=== PATIENT | female | born 1940 | race Hispanic/Latino ===

== ENCOUNTER 2017-01-09 05:57 | Day surgery (SDC) | payer MEDICARE, BC ==
[2017-01-08 07:38] VITALS: BMI 26.0
[2017-01-09] MEDS ORDERED: Lactated Ringer's 1,000 ML IV ONE (06:45)
[2017-01-09] MEDS ORDERED: Bacitracin Ointment 30 GM TUBE ONE (07:20)
[2017-01-09] MEDS ORDERED: Bupivacaine 0.5% Inj(30mL) ONE (07:20)
[2017-01-09] MEDS ORDERED: Dexamethasone 4 mg/1 ml ONE (07:20)
[2017-01-09] MEDS ORDERED: Lidocaine 1% Inj (20ml) ONE (07:20)
[2017-01-09] MEDS ORDERED: Propofol 10 mg/ml Inj (20 ML) ONE (07:31)
[2017-01-09] MEDS ORDERED: Lidocaine 1% Inj (20ml) IJ ONE (08:24)
[2017-01-09] MEDS ORDERED: Bupivacaine 0.5% 50 ML IJ ONE (08:35)
[2017-01-09] MEDS ORDERED: HYDROmorphone 0.5 mg/0.5 ml ISec IVP PRN (08:55)
--- NOTE | 2017-01-09 10:38 | PCM.SURG1 ---
Surgeon's Initial Post Op Note - Surgeon's Notes Surgeon: Abdullahi Refuge Manager: LAZARA Marcano Type of Anesthesia: IV Sedation, Local Anesthesia Administered By: DR Samayoa/ Pre-Operative Diagnosis: Painful Hardware R foot Operative Findings: painful hardware (deep) R foot. Bursa R foot Post-Operative Diagnosis: as above Operation Performed: Hardware removal ( deep) R foot. bursal excision R foot ( dorsal aspect). excision skin/subcutaneous tissue. positioning of fluor/ interpretation of video images Specimen/Specimens Removed: screw removal (deep). excisionbursa dorsal aspect R foot. excision skin/subcutaneous tissue Estimated Blood Loss: EBL {In ML}: 5 Blood Products Given: N/A Drains Used: No Drains Post-Op Condition: Good Date of Surgery/Procedure: 01/09/17 Time of Surgery/Procedure: 08:25 (time in room/anaesthesia induction time 07:40)
[2017-01-09 12:44] VITALS: BP 133/84; PULSE 59; RESP 18; TEMP 97.9; O2SAT 97
--- NOTE | 2017-01-09 14:01 | RAD ---
PROCEDURE: Intraoperative Fluoroscopy. HISTORY: RIGHT FOOT HARDWARE REMOVAL FINDINGS: Fluoroscopic assistance was provided. Approximately 7.7 seconds fluoroscopy time utilized during this procedure.
--- NOTE | 2017-01-09 16:26 | RAD ---
PROCEDURE: Right Foot Radiographs. HISTORY: S/P rEMOVAL OF HARDWAre COMPARISON: None. FINDINGS: BONES: Normal. No fracture. Status post bunionectomy. JOINTS: Normal. SOFT TISSUES: Normal. OTHER FINDINGS: None. IMPRESSION: No acute fracture. Status post bunionectomy.
--- NOTE | 2017-01-10 06:03 | OP ---
PROCEDURE DATE: 01/09/2017 PREOPERATIVE DIAGNOSES: Painful hardware of the right foot, status post first metatarsal osteotomy. POSTOPERATIVE DIAGNOSES: 1. Painful hardware, right foot, status post first metatarsal osteotomy. 2. Bursal formation superficial to the hardware. 3. Acceptable correction of the hallux valgus deformity. OPERATIVE PROCEDURES: 1. Hardware removal, deep. 2. Excision of bursa on the dorsal aspect of the foot. 3. Positioning of fluoroscope, interpretation of video images. 4. Excision of skin and subcutaneous tissue. SURGEON: Vishnu Fernando MD ALLERGY SPECIALIST: Kerry Klein. ANESTHESIA: Local anesthetic with IV sedation, Dr. Samayoa. COMPLICATIONS: None. DRAINS: None. OPERATIVE INDICATION: The patient is a patient well known to my practice who is a 76-year-old woman, physiologically younger, presents after successful first metatarsal osteotomy. The patient presents now for hardware removal. Pros, cons, risks and benefits of surgical approach are discussed. The p ossibility of mechanical failure, infection, thromboembolic disease, secondary or tertiary surgery is discussed. The patient is very pleased with the outcome of her metatarsal osteotomy. She is just d isturbed by the prominent pin and screw. OPERATIVE PROCEDURE: After having obtained informed consent, after the satisfactory induction of the anesthetic by Dr. Samayoa after having identified side, site and procedure and a critical pause/time o ut, the patient identified as Flora Almonte in the supine position with all bony prominences well pa dded, the right lower extremity is prepped and free draped in the usual fashion for lower extremity s urgery. Under the surgeon's direction, the fluoroscope is positioned. Video images are generated an d therapeutic decisions are made there from. The position of the hardware is identified and marked. The incision, approximately 1 inch incision is described, extending from the margin of the buried burleson rdware to the pin. The skin is insufflated with Marcaine for local anesthetic with Dr. Samayoa providi ng intravenous sedation. The skin incision is carried down through the skin and subcutaneous tissue. The bursa is identified. Great care is taken to excise the bursal tissue. The inner fragmentary p in is identified and is removed. At this point in time, the screw head is identified and is removed as well. The wound is thoroughly irrigated. The tourniquet is deflated. Hemostasis controlled and closure is in layers with interrupted Vicryl and nylon. Intraarticular injection is offered. Compre ssion dressing is applied. Vishnu Fernando MD cc: [id number] TT: 01/10/2017 06:03:35 tn
== END 2017-01-09 13:55 | disposition home or self-care (01) ==
LOC: H.OPSURG 05:57
PROVIDERS: ATTEND Orthopaedic Surgery
DX: T84.84XA Pain due to internal orthopedic prosthetic devices, implants and grafts, initial encounter (principal); E03.9 Hypothyroidism, unspecified; K21.9 Gastro-esophageal reflux disease without esophagitis; M20.11 Hallux valgus (acquired), right foot
CPT/HCPCS: 20680; 28002; 73620; 88300; 88304; 97116; 97161; G8978; G8979; G8980; J0690; J2704; J3010; J7030; J7120

== ENCOUNTER 2017-11-20 06:06 | Inpatient (IN) | payer MEDICARE, OTHER ==
[2017-11-06 08:59] VITALS: BMI 24.1
--- NOTE | 2017-11-20 07:29 | CP.PCM.HP ---
History of Present Illness - History of Present Illness History of Present Illness: PMD: Doni Gotti MD Orthopedist: Dr Fernando Chief Complaint: Right hip pain The Patient was seen and examined in room 721 HPI: this is a 77 years old female with remote hx of HTN, not on medication, Hypothyroidism, multiple surgeries and osteoarthritis of the right hip for which She has been treated with analgesic tablets, Physical therapy with no significant relief. Because of the right hip failing conservative treatment she and her Orthopedist have decided on Surgical intervention . She is here for an elective right total hip replacement. No Fever, SOB, Chest pain diarrhea nor dysuria. PMH: Remote HTN; Hypothyroidism; cataract; GERD; Arthritis; Back pain PSH: Carpel Tunnel syndrome left wrist; Thyroid surgery; partial hysterectomy; Bunion Surgery bilateral 1st metatarsal Osteotomy SH: No illegal drug use; no Alcohol; never Smoked; live with family; Retired Seamstress FH: States: no known family hx Allergies; NKDA Medication: Reviewed Present on Admission - Present on Admission Any Indicators Present on Admission: No History of DVT/PE: No History of Uncontrolled Diabetes: No Urinary Catheter: No Decubitus Ulcer Present: No Review of Systems - Constitutional Constitutional: absent: Anorexia, Chills, Fever, Headache, Lethargy - EENT Eyes: Requires Corrective Lenses. absent: Diplopia, Floaters, Sees Flashes Ears: absent: Decreased Hearing, Ear Discharge, Tinnitus Nose/Mouth/Throat: absent: Epistaxis, Nasal Congestion, Sinus Pain, Sinus Pressure - Cardiovascular Cardiovascular: absent: Chest Pain, Dyspnea, Edema - Respiratory Respiratory: absent: Cough, Dyspnea, Wheezing - Gastrointestinal Gastrointestinal: absent: Constipation, Diarrhea, Nausea, Vomiting - Genitourinary Genitourinary: absent: Dysuria, Flank Pain, Hematuria, Urinary Frequency - Musculoskeletal Musculoskeletal: Arthralgias, Back Pain. absent: Joint Swelling - Integumentary Integumentary: absent: Pruritus, Rash, Skin Ulcer, Sores, Striae, Swelling - Neurological Neurological: absent: Confusion, Dizziness, Focal Weakness, Headaches, Weakness - Psychiatric Psychiatric: absent: Anxiety, Depression, Panic Attacks - Endocrine Endocrine: absent: Palpitations, Polydipsia, Polyphagia, Polyuria - Hematologic/Lymphatic Hematologic: absent: Easy Bleeding, Easy Bruising Past Patient History - Past Medical History & Family History Past Medical History?: Yes - Past Social History Smoking Status: Never Smoked Chewing Tobacco Use: No Cigar Use: No Alcohol: None Drugs: Denies Home Situation {Lives}: With Family - CARDIAC Hx Cardiac Disorders: No - PULMONARY Hx Respiratory Disorders: No - NEUROLOGICAL Hx Neurological Disorder: No - HEENT Hx HEENT Problems: Yes Hx Cataracts: Yes - RENAL Hx Chronic Kidney Disease: No - ENDOCRINE/METABOLIC Hx Endocrine Disorders: No Hx Hypothyroidism: Yes - HEMATOLOGICAL/ONCOLOGICAL Hx Blood Disorders: No - INTEGUMENTARY Hx Dermatological Problems: No - MUSCULOSKELETAL/RHEUMATOLOGICAL Hx Musculoskeletal Disorders: Yes Hx Arthritis: Yes (right hip) Hx Back Pain: Yes Hx Spinal Stenosis: Yes - GASTROINTESTINAL Hx Gastrointestinal Disorders: Yes Hx Gastroesophageal Reflux: Yes Other/Comment: REMOVAL OF CYST IN STOMACH - GENITOURINARY/GYNECOLOGICAL Hx Genitourinary Disorders: No - PSYCHIATRIC Hx Emotional Abuse: No Hx Physical Abuse: No - SURGICAL HISTORY Hx Surgeries: Yes Hx Hysterectomy: Yes (PARTIAL) Hx Musculoskeletal Surgery: Yes (BILATERAL FOOT 2016) Hx Orthopedic Surgery: Yes (left wrtst carpal tunnel) Hx Thyroidectomy: Yes (REJI THYROIDECTOMY 20 YRS) Other/Comment: wendy bunionectomy,cyst on stomach - ANESTHESIA Hx Anesthesia: Yes Hx Anesthesia Reactions: No Hx Malignant Hyperthermia: No Has any member of the family had a problem w/ anesthesia?: No Meds Allergies/Adverse Reactions: Allergies Allergy/AdvReac Type Severity Reaction Status Date / Time No Known Allergies Allergy Verified 11/20/17 07:27 Physical Exam - Constitutional Appears: No Acute Distress - Head Exam Head Exam: ATRAUMATIC, NORMAL INSPECTION, NORMOCEPHALIC - Eye Exam Eye Exam: EOMI, Normal appearance Pupil Exam: NORMAL ACCOMODATION, PERRL - ENT Exam ENT Exam: Mucous Membranes Moist, Normal Exam, Normal External Ear Exam - Neck Exam Neck exam: Positive for: Full Rom, Normal Inspection. Negative for: Lymphadenopathy, Tenderness - Respiratory Exam Respiratory Exam: Clear to Auscultation Bilateral. absent: Rales, Rhonchi, Wheezes - Cardiovascular Exam Cardiovascular Exam: REGULAR RHYTHM, RRR, +S1, +S2 - GI/Abdominal Exam GI & Abdominal Exam: Normal Bowel Sounds, Soft. absent: Mass, Organomegaly, Tenderness - Rectal Exam Rectal Exam: Deferred - Extremities Exam Extremities exam: Positive for: joint swelling, normal inspection, tenderness - Neurological Exam Neurological exam: Alert, CN II-XII Intact, Oriented x3, Reflexes Normal - Psychiatric Exam Psychiatric exam: Normal Affect, Normal Mood - Skin Skin Exam: Dry, Intact, Normal Color, Warm Results - Vital Signs Recent Vital Signs: Last Vital Signs Temp 98 F 11/20/17 07:15 Pulse 68 11/20/17 07:21 Resp 18 11/20/17 07:15 BP 176/79 H 11/20/17 07:15 Pulse Ox 100 11/20/17 07:15 - Labs Result Diagrams: 11/20/17 07:15 Assessment & Plan - Assessment and Plan (Free Text) Assessment: #. Osteoathritis Right Hip #. Hypothyroidism #. Elevated Blood Pressure #. GERD #. Back pain Plan: 77 years old female with remote hx of Hypothyroidism, multiple surgeries and osteoarthritis of the right hip. She failed conservative treatment of the Osteoarthritis of the right hip and so is here for an elective right total hip replacement. #. Osteoathritis Right Hip for an elective Right Total hip replacement - consult Dr Fernando Orthopedic - Orthopedic management - NPO - pain management - PT/OT #. Hypothyroidism - Follow TSH - Restart levothyroxin after surgery #. Elevated Blood Pressure - Follow Blood Pressures #. GERD - Pantoprazole #. Back pain - pain management #. DVT prophylaxis post surgery #. Code Status: Full - Date & Time Date: 11/20/17
[2017-11-20 07:55] LABS: BLOOD UREA NITROGEN 20 mg/dl (7-17); CALCIUM 9.3 mg/dL (8.4-10.2); GFR AFRICAN-AMERICAN > 60; GFR NON-AFRICAN AMERICAN > 60
[2017-11-20] MEDS ORDERED: Lidocaine Hydrochloride 1% 0 ML ONE (08:05)
[2017-11-20] MEDS ORDERED: Bupivacaine 0.5% Inj(30mL) ONE (08:05)
[2017-11-20] MEDS ORDERED: Bacitracin Ointment 30 GM TUBE ONE (08:05)
[2017-11-20] MEDS ORDERED: Absorbable Gelatin Sponge Size 100 ONE (08:06)
[2017-11-20] MEDS ORDERED: Thrombin Topical 5,000 Int Units Spray Kit ONE (08:06)
[2017-11-20] MEDS ORDERED: Morphine 1 mg/ml preservative-free Inj(Duramorph) ONE (08:12)
[2017-11-20] MEDS ORDERED: Midazolam 2 MG/2 ML VIAL ONE (08:12)
[2017-11-20] MEDS ORDERED: Lidocaine 2% Jelly (5 ml) TOP ONE (08:19)
[2017-11-20] MEDS ORDERED: Lidocaine 2% MPF (5 ml) Inj ONE (08:20)
[2017-11-20] MEDS ORDERED: Succinylcholine 200 mg/10 ml Inj IV ONE (08:21)
[2017-11-20] MEDS ORDERED: Propofol 10 mg/ml Inj (20 ML) ONE (08:21)
[2017-11-20] MEDS ORDERED: Lactated Ringer's 1,000 ML IV ONE ×4 (08:45→14:52)
[2017-11-20] MEDS ORDERED: ePHEDrine 50 mg/ml Inj ONE (08:47)
[2017-11-20] MEDS ORDERED: Phenylephrine 10 mg/ml Inj ONE (08:48)
[2017-11-20] MEDS ORDERED: Rocuronium 10 mg/ml (5 ml) ONE ×2 (09:18→10:54)
[2017-11-20] MEDS ORDERED: Tranexamic Acid 100 mg/ml IV ONE (09:25)
--- NOTE | 2017-11-20 09:35 | CP.PCM.CON ---
History of Present Illness - History of Present Illness History of Present Illness: 77F failed conservative mgmt elected for right VIDAL no history bleeding/clotting disorder, CAD/stents/seizure disorder Review of Systems - Review of Systems All systems: reviewed and no additional remarkable complaints except - Musculoskeletal Musculoskeletal: As Per HPI Past Patient History - Past Medical History & Family History Past Medical History?: Yes Past Family History: Reviewed and not pertinent - Past Social History Smoking Status: Never Smoked Chewing Tobacco Use: No Cigar Use: No Alcohol: None Drugs: Denies Home Situation {Lives}: With Family - CARDIAC Hx Cardiac Disorders: No - PULMONARY Hx Respiratory Disorders: No - NEUROLOGICAL Hx Neurological Disorder: No - HEENT Hx HEENT Problems: Yes Hx Cataracts: Yes - RENAL Hx Chronic Kidney Disease: No - ENDOCRINE/METABOLIC Hx Endocrine Disorders: No Hx Hypothyroidism: Yes - HEMATOLOGICAL/ONCOLOGICAL Hx Blood Disorders: No - INTEGUMENTARY Hx Dermatological Problems: No - MUSCULOSKELETAL/RHEUMATOLOGICAL Hx Musculoskeletal Disorders: Yes Hx Arthritis: Yes (right hip) Hx Back Pain: Yes Hx Spinal Stenosis: Yes - GASTROINTESTINAL Hx Gastrointestinal Disorders: Yes Hx Gastroesophageal Reflux: Yes Other/Comment: REMOVAL OF CYST IN STOMACH - GENITOURINARY/GYNECOLOGICAL Hx Genitourinary Disorders: No - PSYCHIATRIC Hx Emotional Abuse: No Hx Physical Abuse: No - SURGICAL HISTORY Hx Surgeries: Yes Hx Hysterectomy: Yes (PARTIAL) Hx Musculoskeletal Surgery: Yes (BILATERAL FOOT 2016) Hx Orthopedic Surgery: Yes (left wrtst carpal tunnel) Hx Thyroidectomy: Yes (REJI THYROIDECTOMY 20 YRS) Other/Comment: wendy bunionectomy,cyst on stomach - ANESTHESIA Hx Anesthesia: Yes Hx Anesthesia Reactions: No Hx Malignant Hyperthermia: No Has any member of the family had a problem w/ anesthesia?: No Meds Allergies/Adverse Reactions: Allergies Allergy/AdvReac Type Severity Reaction Status Date / Time No Known Allergies Allergy Verified 11/20/17 07:27 Physical Exam - Constitutional Appears: Well, No Acute Distress - Respiratory Exam Respiratory Exam: NORMAL BREATHING PATTERN - Back Exam Additional comments: +ROM ankle/toes, sensation intact +DP/PT pulses calves soft NT neg homans - Neurological Exam Neurological exam: Alert, Oriented x3 - Psychiatric Exam Psychiatric exam: Normal Affect, Normal Mood - Skin Skin Exam: Dry, Intact, Normal Color, Warm Results - Vital Signs Recent Vital Signs: Last Vital Signs Temp 98 F 11/20/17 07:15 Pulse 68 11/20/17 07:21 Resp 18 11/20/17 07:15 BP 176/79 H 11/20/17 07:15 Pulse Ox 100 11/20/17 07:15 - Labs Result Diagrams: 11/20/17 07:15 Labs: Laboratory Results - last 24 hr 11/20/17 11/20/17 07:15 07:15 Sodium 144 Potassium 4.1 Chloride 104 Carbon Dioxide 28 Anion Gap 16 BUN 20 H Creatinine 0.9 Est GFR ( Amer) > 60 Est GFR (Non-Af Amer) > 60 Random Glucose 104 Calcium 9.3 Blood Type O POSITIVE Antibody Screen Negative Crossmatch See Detail BBK History Checked No verified bt Assessment & Plan (1) Primary osteoarthritis of right hip Assessment and Plan: NPO type and cross for OR Status: Acute (2) Hypothyroidism Status: Chronic
[2017-11-20] MEDS ORDERED: Bacitracin OINT 15GM TOP ONE (12:00)
[2017-11-20] MEDS ORDERED: Sodium Chloride 0.9% 1,000 ML IV ONE (13:06)
[2017-11-20] MEDS ORDERED: Sodium Chloride 0.9% 1,000 ML IV SCH (13:30)
--- NOTE | 2017-11-20 13:52 | PCM.SURG1 ---
Surgeon's Initial Post Op Note - Surgeon's Notes Surgeon: Abdullahi District Leader: LAZARA Rincon, 2nd assist Puja Grullon PA-C Type of Anesthesia: General Endo, Spinal Anesthesia Administered By: DR Rudy Shannon Pre-Operative Diagnosis: Severe Primary O/A R hip Operative Findings: Severe primary O/A R hip Post-Operative Diagnosis: as above Operation Performed: R THR- anterior approach. femoral neck osteotomy. autograft bone graft- acetabulum and femur. release iliopsoas tendon Specimen/Specimens Removed: [id number]/cartialage/bone Estimated Blood Loss: EBL {In ML}: 285 Blood Products Given: N/A Drains Used: No Drains Post-Op Condition: Good Date of Surgery/Procedure: 11/20/17 Time of Surgery/Procedure: 10:05 (time in room/anaesthesia indcution time 8:45)
--- NOTE | 2017-11-20 14:30 | RAD ---
PROCEDURE: Right Hip Radiographs. HISTORY: Status post right THR COMPARISON: None. FINDINGS: BONES: Interval right total hip replacement. The hardware appears intact with satisfactory alignment. Right femoral stem component is appropriately located within the acetabular component. JOINTS: As above. Left hip joint unremarkable. . Mild degenerative spondylosis lumbosacral spine with what appears represent a mild levoscoliosis. . SOFT TISSUES: Normal. OTHER FINDINGS: None. IMPRESSION: Status post right total hip replacement with satisfactory alignment.
--- NOTE | 2017-11-20 15:47 | RAD ---
PROCEDURE: Fluoroscopy up to 1 hr. HISTORY: RIGHT HIP COMPARISON: None TECHNIQUE: Standard protocol for this study/examination. FINDINGS: Total fluoroscopic time (continuous mode) utilized during the procedure 24.3 (seconds). Submitted images from the current procedure: 6.0 IMPRESSION: Less than 1 hr fluoroscopic time utilized during performance of the procedure.
[2017-11-20] MEDS ORDERED: Pneumococcal 23-Valent Vaccine IM ONE (16:22)
[2017-11-20] MEDS: ceFAZolin 2 GM in Sodium Chloride 0.9% 100 ML IVPB SCH (17:54)
[2017-11-21] MEDS: ceFAZolin 2 GM in Sodium Chloride 0.9% 100 ML IVPB SCH (00:27)
[2017-11-21] MEDS ORDERED: Simethicone 80 mg Chewtab PO ONE (01:12)
[2017-11-21 07:38] LABS: HEMOGLOBIN 8.4 g/dL (12.0-16.0); MEAN CELL VOLUME 84.9 fl (81.0-99.0); MEAN CORPUSCULAR HEMOGLOBIN 28.9 pg (27.0-31.0); MEAN CORPUSCULAR HGB CONC 34.1 g/dL (33.0-37.0); RBC 2.92 Mil/uL (3.80-5.20); RED CELL DISTRIBUTION WIDTH 13.1 % (11.5-14.5); WHITE BLOOD COUNT 9.6 K/uL (4.8-10.8)
[2017-11-21 07:45] LABS: BLOOD UREA NITROGEN 20 mg/dl (7-17); CALCIUM 8.1 mg/dL (8.4-10.2); GFR AFRICAN-AMERICAN > 60; GFR NON-AFRICAN AMERICAN > 60
[2017-11-21] MEDS ORDERED: Oxycodone/Acetaminophen 5/325 mg Tab PO ONE (10:06)
--- NOTE | 2017-11-21 11:08 | CP.PCM.PN ---
Subjective - Date & Time of Evaluation Date of Evaluation: 11/21/17 Time of Evaluation: 08:30 - Subjective Subjective: Patient was seen and examined at bedside comfortable. Pain is well controlled with SALVAGE DIVER. Able to transfer and ambulate with RW with PT. No acute events overnight. Objective - Vital Signs/Intake and Output Vital Signs (last 24 hours): Temp Pulse Resp BP Pulse Ox 98.4 F 88 18 105/63 98 11/21/17 08:49 11/21/17 08:49 11/21/17 08:49 11/21/17 08:49 11/21/17 08:49 - Medications Medications: Current Medications Docusate Sodium (Colace) 100 mg PO BID [facility] Last Admin: 11/21/17 08:26 Dose: 100 mg Enoxaparin Sodium (Lovenox) 40 mg SC DAILY [facility] PRN Reason: Protocol Lactated Ringer's (Lactated Ringer's) 1,000 mls @ 100 mls/hr IV .Q10H [facility] Metoclopramide HCl (Reglan) 5 mg IVP Q6 PRN PRN Reason: Nausea/Vomiting Last Admin: 11/21/17 01:55 Dose: 5 mg Morphine Sulfate (Morphine) 2 mg IVP Q4 PRN PRN Reason: Pain, severe (8-10) Ondansetron HCl (Zofran Inj) 4 mg IVP Q4 PRN PRN Reason: Nausea/Vomiting Ondansetron HCl (Zofran Odt) 4 mg PO Q8H PRN PRN Reason: Nausea/Vomiting Last Admin: 11/21/17 10:18 Dose: 4 mg Oxycodone/Acetaminophen (Percocet 5/325 Mg Tab) 1 tab PO Q4 PRN PRN Reason: Pain, moderate (4-7) Stop: 11/24/17 10:07 - Labs Labs: 11/21/17 05:30 11/21/17 05:30 - Extremities Exam Additional comments: R hip: dressings c/d/i, mild swelling and tenderness about wound 2nd to surgery sensation intact DP/SP/TN motor intact EHL/FHL/TA/GA pedal pulses intact calves soft/NT Assessment and Plan (1) Primary osteoarthritis of right hip Assessment & Plan: POD#1 from R VIDAL -pain control, transition to oral meds -cont DVT ppx -PT/OT -anemic this AM, transfuse 1 unit PRBC as per Dr. Fernando -above d/w Dr. Fernando in agreement Status: Acute
[2017-11-21] MEDS: Levothyroxine 100 MCG TAB PO SCH (12:06)
--- NOTE | 2017-11-21 12:08 | OP ---
PROCEDURE DATE: 11/20/2017 PREOPERATIVE DIAGNOSIS: Severe osteoarthritis of the right hip. POSTOPERATIVE DIAGNOSIS: Severe osteoarthritis of the right hip. PROCEDURE PERFORMED: 1. Right total hip replacement arthroplasty, anterior approach. 2. Femoral neck osteotomy. 3. Release of iliopsoas tendon. 4. Autograft bone graft to the proximal femur and the acetabulum. SURGEON: Vishnu Fernando MD AGRICULTURE ENGINEER: Kerry Klein, certified registered nursing cutter first. SECOND PRISON LIBRARIAN: Puja Grullon PA-C TYPE OF ANESTHESIA: General and regional anesthesia. ANESTHESIA ADMINISTERED BY: Sundeep Shannon MD COMPLICATIONS: None. DRAINS: None. ESTIMATED BLOOD LOSS: Approximately 280 mL. OPERATIVE INDICATION: Ms. Almonte is a patient well-known to my practice, who presents as a 77-year-old woman who has had severe pain and restricted range of motion of the right hip for a period of time. The patient presents with marked discomfort, pain and restricted range of motion. The patient has pain and restricted range of motion of the hip. The patient had failed a conservative course consisting of activity modification and anti-inflammatory medication therapy. The patient does not have radicular symptoms. This is evidence of primary hip pain. The patient again had failed conservative management. Pros, cons, risks and benefits of surgical approach were discussed. Possibility of mechanical failure, infection, thromboembolic disease, secondary or tertiary surgery was discussed. The patient can no longer withstand the discomfort. OPERATIVE PROCEDURE: After having obtained informed consent in the above fashion, after having identified side, site and procedure and a critical pause/time-out, after the satisfactory induction of spinal and general anesthesia, the patient identified as Flora Almonte is placed in the supine position in the [facility] positioner. All bony prominences were well padded. Great care was taken that the operative field was sterilely prepped and draped. Under the surgeon's direction, the fluoroscope was positioned, video images were generated, and therapeutic decisions were made therefrom. It was noted that there was evidence of a leg-length inequality with the right lower extremity less and shorter than the left lower extremity. The patient had presented with marked discomfort. Again, after sterilely prepping and draping, after having identified side, site and procedure and critical pause/time-out, after the satisfactory induction of the anesthetic, an incision was accomplished 2 cm distal to the ASIS and 3 cm posterior. An incision was described obliquely superficial to the tensor fascia femoris muscle. The skin incision was carried down through the skin and subcutaneous tissue. The tensor fascia femoris muscle was taken down from the investing fascia and at this point in time, the Roscoe, Medacta modification retractor was introduced. The fascia at the posterior aspect of the rectus was identified and developed. Hemostasis controlled with the Aquamantys. This having been accomplished, the fascia is identified and carefully divided. The lateral femoral circumflex vessels and the anterior branch of the lateral femoral circumflex vessels were identified. These were identified and controlled with a ligature and Aquamantys. This having been accomplished, capsulotomy was accomplished. The reflected head of rectus femoris was identified just deep to the fat pad. The fat pad was excised. The reflected head of rectus femoris was carefully divided. This having been accomplished, a capsulectomy was accomplished to the area of the intertrochanteric line, identified by the intertrochanteric tubercle. This was elevated and then capsular flap was tagged. At this point in time, again with reference from preoperative planning, a femoral neck osteotomy was accomplished. Femoral neck osteotomy having been accomplished and the Medacta retractors having been placed, the head was removed from the acetabulum. The head was measured to approximately 46 mm and the pulvinar was excised and the acetabulum was exposed. The labrum was excised and reaming was carried out to approximately 52 mm. The 52-mm reamer was introduced. The reamings were denuded off articular cartilage and safe for bone grafting. This having been accomplished, the 52-mm Medacta cup was impacted in approximately 40 degrees of abduction and approximately 5 to 10 degrees of anteversion. It should be noted that the patient has excessive anteversion at the neck. Now this having been accomplished, the autograft bone grafting having been applied to the acetabulum before impaction of the cup and the cup having been impacted, attention was now turned to the femur. With progressive external rotation of the femur, the iliopsoas tendon was released. The anterior capsule was released. The ischiofemoral and iliofemoral ligaments were released and the femur was delivered into the wound. This having been accomplished with the retractors and the femur having been developed in the wound, the bridge of bone between the neck and the trochanter was removed using the box chisel and the kimberli was used to open the canal. There was a great deal of difficulty in entering the canal with a rasp because of the version shaft mismatch. This having been noted, the reamer guide was placed down the femur. The flexible reamers were employed. This having been accomplished, the rasp was inserted. Broaching was accomplished to a number 2 femoral component. The number 2 femoral component had been trialed. A standard neck and neutral head was applied. The hip was reduced and found to be stable in all planes. At this point in time, the broach was removed and the number 2 femoral stem was introduced with the zero ceramic head and verification of position was offered on image intensification views. This having been accomplished and the hip having been reduced, it should be noted that the proximal femur, because of the anteversion mismatch, is well fixed and there is an area of the gap between the prosthesis and the shaft. Autograft bone grafting was applied. The wound was thoroughly irrigated. The capsule was replaced. Closures in layers with 0 Quill, followed by 0 Quill and tenzin for skin. Blood loss of approximately 285 mL. Thrombin and Gelfoam were placed. Compression dressing was applied. Postoperative x-ray revealed excellent position of the construct. It should be noted that the certified nursing cutter first, Kerry Klein and NEIL Grullon were necessary to the completion of the surgical procedure. This having been accomplished, compression dressing was applied and leg lengths were essentially equal and there are no complications. Vishnu Fernando MD
[2017-11-21] MEDS: Enoxaparin 40 mg Syringe SC SCH (12:40)
--- NOTE | 2017-11-21 14:25 | CP.PCM.PN ---
Subjective - Date & Time of Evaluation Date of Evaluation: 11/21/17 Time of Evaluation: 11:00 - Subjective Subjective: Pt' post op pain is controlled sl nausea this am denies abd pain no CP no SOB no fever Objective - Vital Signs/Intake and Output Vital Signs (last 24 hours): Temp Pulse Resp BP Pulse Ox 99.2 F 88 18 105/63 98 11/21/17 12:40 11/21/17 08:49 11/21/17 08:49 11/21/17 08:49 11/21/17 08:49 - Medications Medications: Current Medications Docusate Sodium (Colace) 100 mg PO BID [facility] Last Admin: 11/21/17 08:26 Dose: 100 mg Enoxaparin Sodium (Lovenox) 40 mg SC DAILY [facility] PRN Reason: Protocol Last Admin: 11/21/17 12:40 Dose: 40 mg Lactated Ringer's (Lactated Ringer's) 1,000 mls @ 100 mls/hr IV .Q10H [facility] Levothyroxine Sodium (Synthroid) 100 mcg PO DAILY@0630 [facility] Last Admin: 11/21/17 12:06 Dose: 100 mcg Metoclopramide HCl (Reglan) 5 mg IVP Q6 PRN PRN Reason: Nausea/Vomiting Last Admin: 11/21/17 01:55 Dose: 5 mg Morphine Sulfate (Morphine) 2 mg IVP Q4 PRN PRN Reason: Pain, severe (8-10) Ondansetron HCl (Zofran Inj) 4 mg IVP Q4 PRN PRN Reason: Nausea/Vomiting Ondansetron HCl (Zofran Odt) 4 mg PO Q8H PRN PRN Reason: Nausea/Vomiting Last Admin: 11/21/17 10:18 Dose: 4 mg Oxycodone/Acetaminophen (Percocet 5/325 Mg Tab) 1 tab PO Q4 PRN PRN Reason: Pain, moderate (4-7) Stop: 11/24/17 10:07 - Labs Labs: 11/21/17 05:30 11/21/17 05:30 - Constitutional Appears: No Acute Distress - Head Exam Head Exam: NORMAL INSPECTION, NORMOCEPHALIC - Eye Exam Eye Exam: EOMI, Normal appearance Pupil Exam: NORMAL ACCOMODATION - ENT Exam ENT Exam: Mucous Membranes Moist, Normal External Ear Exam - Neck Exam Neck Exam: Full ROM. absent: Meningismus - Respiratory Exam Respiratory Exam: NORMAL BREATHING PATTERN. absent: Respiratory Distress - Cardiovascular Exam Cardiovascular Exam: REGULAR RHYTHM, +S1, +S2, Murmur - GI/Abdominal Exam GI & Abdominal Exam: Soft, Normal Bowel Sounds. absent: Tenderness - Extremities Exam Extremities Exam: Normal Capillary Refill. absent: Calf Tenderness Additional comments: right hip with dressing - Back Exam Back Exam: CVA tenderness (L). absent: CVA tenderness (R) - Neurological Exam Neurological Exam: Alert, Awake, CN II-XII Intact, Oriented x3 Additional comments: moves all extremities - Psychiatric Exam Psychiatric exam: Normal Affect, Normal Mood - Skin Skin Exam: Dry, Normal Color, Warm Assessment and Plan - Assessment and Plan (Free Text) Assessment: 77 years old female with remote hx of Hypothyroidism, multiple surgeries and osteoarthritis of the right hip. She failed conservative treatment of the Osteoarthritis of the right hip and so was admitted for an elective right total hip replacement. 1. Osteoathritis Right Hip s/p Right Total hip replacement - Dr [facility] - pt doing well post op - pain management- pain controlled - PT/OT consulted- rec TCU placement - will d/c pt to TCU in am 2. Hypothyroidism -cont Levothyroxine 3. Acute Blood Loss anemia, post op - Transfuse 1 unit PRBC - start Ferrous Sulate 4. GERD - Pantoprazole #. DVT prophylaxis - Lovenox #. Code Status: Full Surrogate decision maker - daughter Lissett
[2017-11-21] MEDS: Oxycodone/Acetaminophen 5/325 mg Tab PO PRN (20:44)
[2017-11-21] MEDS: Lactated Ringer's 1,000 ML IV SCH (20:56)
[2017-11-22 00:19] VITALS: RESP 20
[2017-11-22] MEDS: Oxycodone/Acetaminophen 5/325 mg Tab PO PRN ×2 (01:03→10:32)
[2017-11-22] MEDS: Lactated Ringer's 1,000 ML IV SCH ×2 (06:59→07:32)
[2017-11-22] MEDS: Levothyroxine 100 MCG TAB PO SCH (07:11)
[2017-11-22 07:33] LABS: HEMOGLOBIN 8.1 g/dL (12.0-16.0); MEAN CELL VOLUME 85.1 fl (81.0-99.0); MEAN CORPUSCULAR HEMOGLOBIN 28.6 pg (27.0-31.0); MEAN CORPUSCULAR HGB CONC 33.6 g/dL (33.0-37.0); RBC 2.82 Mil/uL (3.80-5.20); RED CELL DISTRIBUTION WIDTH 13.6 % (11.5-14.5); WHITE BLOOD COUNT 8.8 K/uL (4.8-10.8)
[2017-11-22 08:19] VITALS: BP 114/63; PULSE 84; TEMP 98.3; O2SAT 99
[2017-11-22] MEDS: Enoxaparin 40 mg Syringe SC SCH (08:52)
--- NOTE | 2017-11-22 09:43 | CP.PCM.DIS ---
Provider - Provider Date of Admission: 11/20/17 08:08 Attending physician: Vishnu Fernando III, MD Primary care physician: Vishnu Fernando III, MD Time Spent in preparation of Discharge (in minutes): 30 Diagnosis - Discharge Diagnosis (1) Primary osteoarthritis of right hip Status: Acute (2) Hypothyroidism Status: Chronic Hospital Course - Lab Results Lab Results: Most Recent Lab Values WBC 8.8 K/uL (4.8-10.8) 11/22/17 05:05 RBC 2.82 Mil/uL (3.80-5.20) L 11/22/17 05:05 Hgb 8.1 g/dL (12.0-16.0) L 11/22/17 05:05 Hct 24.0 % (34.0-47.0) L 11/22/17 05:05 MCV 85.1 fl (81.0-99.0) 11/22/17 05:05 MCH 28.6 pg (27.0-31.0) 11/22/17 05:05 MCHC 33.6 g/dL (33.0-37.0) 11/22/17 05:05 RDW 13.6 % (11.5-14.5) 11/22/17 05:05 Plt Count 107 K/uL (130-400) L D 11/22/17 05:05 Sodium 140 mmol/l (132-148) 11/21/17 05:30 Potassium 4.3 MMOL/L (3.6-5.0) 11/21/17 05:30 Chloride 105 mmol/L (98-107) 11/21/17 05:30 Carbon Dioxide 26 mmol/L (22-30) 11/21/17 05:30 Anion Gap 13 (10-20) 11/21/17 05:30 BUN 20 mg/dl (7-17) H 11/21/17 05:30 Creatinine 0.8 mg/dl (0.7-1.2) 11/21/17 05:30 Est GFR ( Amer) > 60 11/21/17 05:30 Est GFR (Non-Af Amer) > 60 11/21/17 05:30 Random Glucose 127 mg/dL (65-105) H 11/21/17 05:30 Calcium 8.1 mg/dL (8.4-10.2) L 11/21/17 05:30 25-OH Vitamin D Total 16.3 NG/ML (30.0-100.0) L 11/21/17 05:30 Blood Type O POSITIVE 11/20/17 07:15 Blood Type Confirm O POSITIVE 11/20/17 09:30 Antibody Screen Negative 11/20/17 07:15 Crossmatch See Detail 11/20/17 07:15 BBK History Checked No verified bt 11/20/17 07:15 - Hospital Course Hospital Course: 77 years old female with remote hx of Hypothyroidism, multiple surgeries and osteoarthritis of the right hip. She failed conservative treatment of the Osteoarthritis of the right hip and so was admitted for an elective right total hip replacement. Pt stable to be discharged to TCU this morning for further rehab. 1. Osteoathritis Right Hip s/p Right Total hip replacement - Dr [facility] - pt doing well post op - pain management- pain controlled - PT/OT consulted 2. Hypothyroidism -cont Levothyroxine 3. Acute Blood Loss anemia, post op - Transfuse 1 unit PRBC - start Ferrous Sulate 4. GERD - Pantoprazole #. DVT prophylaxis - Lovenox #. Code Status: Full Surrogate decision maker - daughter Lissett Discharge Exam - Head Exam Head Exam: NORMAL INSPECTION, NORMOCEPHALIC - Eye Exam Eye Exam: EOMI, Normal appearance, PERRL Pupil Exam: NORMAL ACCOMODATION - ENT Exam ENT Exam: Mucous Membranes Moist, Normal Oropharynx - Respiratory Exam Respiratory Exam: Clear to PA & Lateral, NORMAL BREATHING PATTERN - Cardiovascular Exam Cardiovascular Exam: RRR, +S1, +S2 - GI/Abdominal Exam GI & Abdominal Exam: Normal Bowel Sounds, Soft. absent: Mass, Tenderness - Extremities Exam Extremities exam: normal capillary refill, pedal pulses present - Back Exam Back exam: absent: CVA tenderness (L), CVA tenderness (R) - Neurological Exam Neurological exam: Alert, Reflexes Normal - Psychiatric Exam Psychiatric exam: Normal Affect, Normal Mood - Skin Skin Exam: Dry, Warm Discharge Plan - Follow Up Plan Condition: GOOD Disposition: TRANSF TO SNF Referrals: Vishnu Fernando III, MD [Primary Care Provider] -
--- NOTE | 2017-11-22 10:39 | CP.PCM.PN ---
Subjective - Date & Time of Evaluation Date of Evaluation: 11/22/17 Time of Evaluation: 10:15 - Subjective Subjective: s-0 PT WITH MINIMAL POST OP DISCOMFORT Objective - Vital Signs/Intake and Output Vital Signs (last 24 hours): Temp Pulse Resp BP Pulse Ox 98.3 F 84 20 114/63 99 11/22/17 08:19 11/22/17 08:19 11/22/17 08:19 11/22/17 08:19 11/22/17 08:19 - Medications Medications: Current Medications Docusate Sodium (Colace) 100 mg PO BID [facility] Last Admin: 11/22/17 08:51 Dose: 100 mg Enoxaparin Sodium (Lovenox) 40 mg SC DAILY [facility] PRN Reason: Protocol Last Admin: 11/22/17 08:52 Dose: 40 mg Ferrous Sulfate (Feosol) 325 mg PO BID [facility] Last Admin: 11/22/17 08:51 Dose: 325 mg Lactated Ringer's (Lactated Ringer's) 1,000 mls @ 100 mls/hr IV .Q10H [facility] Last Admin: 11/22/17 07:32 Dose: 100 mls/hr Levothyroxine Sodium (Synthroid) 100 mcg PO DAILY@0630 [facility] Last Admin: 11/22/17 07:11 Dose: 100 mcg Metoclopramide HCl (Reglan) 5 mg IVP Q6 PRN PRN Reason: Nausea/Vomiting Last Admin: 11/21/17 01:55 Dose: 5 mg Morphine Sulfate (Morphine) 2 mg IVP Q4 PRN PRN Reason: Pain, severe (8-10) Ondansetron HCl (Zofran Inj) 4 mg IVP Q4 PRN PRN Reason: Nausea/Vomiting Ondansetron HCl (Zofran Odt) 4 mg PO Q8H PRN PRN Reason: Nausea/Vomiting Last Admin: 11/21/17 10:18 Dose: 4 mg Oxycodone/Acetaminophen (Percocet 5/325 Mg Tab) 1 tab PO Q4 PRN PRN Reason: Pain, moderate (4-7) Stop: 11/24/17 10:07 Last Admin: 11/22/17 10:32 Dose: 1 tab - Labs Labs: 11/22/17 05:05 11/21/17 05:30 - Additional Findings Additional findings: oBJECTIVE-0 SYSRTEMIC WNL mUSCULOSKEKLTAL STANCE/GAIT- DEFRRED r HIP WOUND BENIGN ORTHOPEDICALLY STABLE Xrays- excellent position of construct Assessment and Plan - Assessment and Plan (Free Text) Assessment: A- successful R THR P weight bearing to tolerance orthopedically stable
== END 2017-11-22 13:40 | DRG 470 ==
LOC: H.OPSURG 06:06 → H.MEDSURG1 08:08
PROVIDERS: ADMIT Internal Medicine; ATTEND Orthopaedic Surgery
PROC: 30233N1 Transfusion of Nonautologous Red Blood Cells into Peripheral Vein, Percutaneous Approach (ICD-10-PCS; 2017-11-20)
PROC: 0SR903A Replacement of Right Hip Joint with Ceramic Synthetic Substitute, Uncemented, Open Approach (ICD-10-PCS; principal; 2017-11-20 09:45)
PROC: 3E0234Z Introduction of Serum, Toxoid and Vaccine into Muscle, Percutaneous Approach (ICD-10-PCS; 2017-11-21)
DX: M16.11 Unilateral primary osteoarthritis, right hip (principal); D62 Acute posthemorrhagic anemia; E03.9 Hypothyroidism, unspecified; I10 Essential (primary) hypertension; K21.9 Gastro-esophageal reflux disease without esophagitis; Z90.710 Acquired absence of both cervix and uterus; Z23 Encounter for immunization; H26.9 Unspecified cataract; M19.90 Unspecified osteoarthritis, unspecified site; M48.00 Spinal stenosis, site unspecified; M54.9 Dorsalgia, unspecified; R11.0 Nausea

== ENCOUNTER 2017-11-22 13:26 | Inpatient (IN) | payer OTHER ==
[2017-11-06 08:59] VITALS: BMI 24.1
[2017-11-22 15:33] VITALS: RESP 20
[2017-11-22] MEDS ORDERED: Morphine 4 MG/ML VIAL IVP PRN (15:58)
[2017-11-22] MEDS: Oxycodone/Acetaminophen 5/325 mg Tab PO PRN (19:02)
[2017-11-22] MEDS ORDERED: POLYETHYLENE GLYCOL 3350 17 GM/Dose PACKET PO STA (20:46)
[2017-11-23] MEDS: Oxycodone/Acetaminophen 5/325 mg Tab PO PRN ×2 (06:40→13:18)
[2017-11-23] MEDS: Levothyroxine 100 MCG TAB PO SCH (06:41)
[2017-11-23] MEDS: Pantoprazole 40 mg EC Tab PO SCH (09:28)
[2017-11-23] MEDS: Enoxaparin 40 mg Syringe SC SCH (09:29)
[2017-11-23] MEDS: POLYETHYLENE GLYCOL 3350 17 GM/Dose PACKET PO PRN (09:48)
--- NOTE | 2017-11-23 12:36 | CP.PCM.HP ---
History of Present Illness - History of Present Illness History of Present Illness: 77 yo female with history of HTN, Hypothyroidism and OA had right THR on 2017 here in [facility] after failing conservative management of OA of the right hip. She did well with surgery and was transferred to TCU for continuation of PT/OT. Present on Admission - Present on Admission Any Indicators Present on Admission: No History of DVT/PE: No History of Uncontrolled Diabetes: No Urinary Catheter: No Decubitus Ulcer Present: No Review of Systems - Review of Systems All systems: reviewed and no additional remarkable complaints except (aside from those mentioned above, 12 point system review were negative by me) Past Patient History - Past Medical History & Family History Past Medical History?: Yes Past Family History: Reviewed and not pertinent - Past Social History Smoking Status: Never Smoked Alcohol: None Drugs: Denies - CARDIAC Hx Hypertension: Yes - PULMONARY Hx Respiratory Disorders: No - NEUROLOGICAL Hx Neurological Disorder: No - HEENT Hx HEENT Problems: Yes Hx Cataracts: Yes - RENAL Hx Chronic Kidney Disease: No - ENDOCRINE/METABOLIC Hx Endocrine Disorders: No Hx Hypothyroidism: Yes - HEMATOLOGICAL/ONCOLOGICAL Hx Blood Disorders: No - INTEGUMENTARY Hx Dermatological Problems: No - MUSCULOSKELETAL/RHEUMATOLOGICAL Hx Arthritis: Yes Hx Falls: No - GASTROINTESTINAL Hx Gastrointestinal Disorders: Yes Hx Gastroesophageal Reflux: Yes Other/Comment: REMOVAL OF CYST IN STOMACH - GENITOURINARY/GYNECOLOGICAL Hx Genitourinary Disorders: No - PSYCHIATRIC Hx Emotional Abuse: No Hx Physical Abuse: No Hx Substance Use: No - SURGICAL HISTORY Hx Surgeries: Yes Hx Hysterectomy: Yes (PARTIAL) Hx Musculoskeletal Surgery: Yes (BILATERAL FOOT 2016) Hx Orthopedic Surgery: Yes (left wrtst carpal tunnel) Hx Thyroidectomy: Yes (REJI THYROIDECTOMY 20 YRS) Other/Comment: wendy bunionectomy,cyst on stomach - ANESTHESIA Hx Anesthesia: Yes Hx Anesthesia Reactions: No Hx Malignant Hyperthermia: No Meds Allergies/Adverse Reactions: Allergies Allergy/AdvReac Type Severity Reaction Status Date / Time No Known Allergies Allergy Verified 11/22/17 14:41 Physical Exam - Constitutional Appears: No Acute Distress - Head Exam Head Exam: ATRAUMATIC - Eye Exam Eye Exam: absent: Scleral icterus - ENT Exam ENT Exam: Mucous Membranes Moist - Neck Exam Neck exam: Negative for: Meningismus - Respiratory Exam Respiratory Exam: absent: Rales, Rhonchi, Wheezes, Respiratory Distress - Cardiovascular Exam Cardiovascular Exam: REGULAR RHYTHM, +S1, +S2 - GI/Abdominal Exam GI & Abdominal Exam: Soft. absent: Tenderness - Rectal Exam Rectal Exam: Deferred - Extremities Exam Extremities exam: Negative for: normal inspection (limited ROM of the right hip) - Back Exam Back exam: absent: tenderness - Neurological Exam Neurological exam: Alert, Oriented x3 - Psychiatric Exam Psychiatric exam: Normal Affect - Skin Skin Exam: Dry, Intact Results - Vital Signs Recent Vital Signs: Last Vital Signs Temp 98.2 F 11/23/17 08:21 Pulse 80 11/23/17 09:07 Resp 20 11/23/17 08:21 BP 120/70 11/23/17 09:07 Pulse Ox 98 11/23/17 09:07 Assessment & Plan - Assessment and Plan (Free Text) Assessment: 77 yo female with history of HTN, Hypothyroidism and OA had right THR on 2017 here in [facility] after failing conservative management of OA of the right hip. She did well with surgery and was transferred to TCU for continuation of PT/OT. 1. Post Right THR pain controlled refer to PT for evaluation and management 2. Hypothyroid continue Levothyroxine 100mcg PO daily 3. Anemia received 1 unit of PRBC HgB: 8.1 (11/22/17) continue iron supplement
[2017-11-24] MEDS: Levothyroxine 100 MCG TAB PO SCH (06:38)
[2017-11-24] MEDS: Pantoprazole 40 mg EC Tab PO SCH (08:14)
[2017-11-24] MEDS: Enoxaparin 40 mg Syringe SC SCH (08:14)
--- NOTE | 2017-11-24 10:53 | CP.PCM.PN ---
Subjective - Date & Time of Evaluation Date of Evaluation: 11/24/17 Time of Evaluation: 09:00 - Subjective Subjective: Patient seen in examined at bedside comfortable. Pain is well controlled. Tolerating PT and ambulation with walker. No new complaints. Objective - Vital Signs/Intake and Output Vital Signs (last 24 hours): Temp Pulse Resp BP Pulse Ox 98.1 F 112 H 20 125/69 98 11/24/17 08:05 11/24/17 09:04 11/24/17 08:05 11/24/17 08:05 11/24/17 09:04 - Medications Medications: Current Medications Acetaminophen (Tylenol 325mg Tab) 650 mg PO Q6 PRN PRN Reason: Pain, Mild (1-3) Last Admin: 11/23/17 23:13 Dose: 650 mg Docusate Sodium (Colace) 100 mg PO BID [facility] Last Admin: 11/24/17 08:14 Dose: 100 mg Enoxaparin Sodium (Lovenox) 40 mg SC DAILY [facility] PRN Reason: Protocol Last Admin: 11/24/17 08:14 Dose: 40 mg Ferrous Sulfate (Feosol) 325 mg PO BID [facility] Last Admin: 11/24/17 08:14 Dose: 325 mg Levothyroxine Sodium (Synthroid) 100 mcg PO DAILY@0630 [facility] Last Admin: 11/24/17 06:38 Dose: 100 mcg Metoclopramide HCl (Reglan) 5 mg IVP Q6 PRN PRN Reason: Nausea/Vomiting Morphine Sulfate (Morphine) 2 mg IVP Q4 PRN PRN Reason: Pain, severe (8-10) Ondansetron HCl (Zofran Odt) 4 mg PO Q8H PRN PRN Reason: Nausea/Vomiting Oxycodone/Acetaminophen (Percocet 5/325 Mg Tab) 1 tab PO Q4 PRN PRN Reason: Pain, moderate (4-7) Stop: 11/25/17 15:59 Last Admin: 11/23/17 13:18 Dose: 1 tab Pantoprazole Sodium (Protonix Ec Tab) 40 mg PO DAILY [facility] Last Admin: 11/24/17 08:14 Dose: 40 mg Polyethylene Glycol (Miralax) 17 gm PO DAILY PRN PRN Reason: Constipation Last Admin: 11/23/17 09:48 Dose: 17 gm - Extremities Exam Additional comments: R hip: Moderate proximal thigh swellingl, Dressings clean dry and intact. Dressings removed revealing wound clean dry and intact with tenzin, small blister medially at the ends of the distal steri strips Sensation intact SP/DP/TN Motor intact EHL/FHL/TA/G pedal pulses intact compartments soft/NT b/l Assessment and Plan (1) Primary osteoarthritis of right hip Assessment & Plan: POD#4 s/p R VIDAL doing well -dry dressings changed -PT/OT WBAT with assistive device -DVT ppx -orthopedically stable -Above d/w Dr. Fernando in agreement Status: Acute
[2017-11-24] MEDS ORDERED: Magnesium Citrate Oral SOL (300 ml) PO ONE (12:31)
[2017-11-25] MEDS: Oxycodone/Acetaminophen 5/325 mg Tab PO PRN (02:44)
[2017-11-25] MEDS: Levothyroxine 100 MCG TAB PO SCH (06:19)
[2017-11-25] MEDS: Enoxaparin 40 mg Syringe SC SCH (08:18)
[2017-11-25] MEDS: Pantoprazole 40 mg EC Tab PO SCH (08:18)
--- NOTE | 2017-11-25 14:10 | CP.PCM.PN ---
Subjective - Date & Time of Evaluation Date of Evaluation: 11/25/17 Time of Evaluation: 10:00 - Subjective Subjective: Patient was seen and examined at bedside. Reports she is feeling well. Has right hip pain postop but it is controlled iwth medications. She has been having constipation but had BM yesterday with enema and magnesium citrate. Objective - Vital Signs/Intake and Output Vital Signs (last 24 hours): Temp Pulse Resp BP Pulse Ox 98.1 F 67 20 124/70 98 11/25/17 08:09 11/25/17 09:37 11/25/17 08:09 11/25/17 08:09 11/25/17 09:37 - Medications Medications: Current Medications Acetaminophen (Tylenol 325mg Tab) 650 mg PO Q6 PRN PRN Reason: Pain, Mild (1-3) Last Admin: 11/24/17 21:45 Dose: 650 mg Docusate Sodium (Colace) 100 mg PO BID [facility] Last Admin: 11/25/17 08:18 Dose: 100 mg Enoxaparin Sodium (Lovenox) 40 mg SC DAILY [facility] PRN Reason: Protocol Last Admin: 11/25/17 08:18 Dose: 40 mg Ferrous Sulfate (Feosol) 325 mg PO BID [facility] Last Admin: 11/25/17 08:18 Dose: 325 mg Levothyroxine Sodium (Synthroid) 100 mcg PO DAILY@0630 [facility] Last Admin: 11/25/17 06:19 Dose: 100 mcg Metoclopramide HCl (Reglan) 5 mg IVP Q6 PRN PRN Reason: Nausea/Vomiting Morphine Sulfate (Morphine) 2 mg IVP Q4 PRN PRN Reason: Pain, severe (8-10) Ondansetron HCl (Zofran Odt) 4 mg PO Q8H PRN PRN Reason: Nausea/Vomiting Oxycodone/Acetaminophen (Percocet 5/325 Mg Tab) 1 tab PO Q4 PRN PRN Reason: Pain, moderate (4-7) Stop: 11/25/17 15:59 Last Admin: 11/25/17 02:44 Dose: 1 tab Pantoprazole Sodium (Protonix Ec Tab) 40 mg PO DAILY [facility] Last Admin: 11/25/17 08:18 Dose: 40 mg Polyethylene Glycol (Miralax) 17 gm PO DAILY PRN PRN Reason: Constipation Last Admin: 11/23/17 09:48 Dose: 17 gm - Additional Findings Additional findings: Physical exam: Constitutional- cooperative, awake, alert Head- NCAT, PERRL Eye- PERRL, EOMI ENT- normal exam, MMM. Neck- normal inspection, supple, no JVD Respiratory- CTAB, no wheezes rales rhonchi Cardiovascular- RRR, +S1, +S2 no MRG GI/Abdominal- normal bowel sounds, soft, no mass, no hsm Skin- warm, dry Extremities Exam- normal capillary refill, normal inspection + limited ROM of the right hip. Neurological Exam- alert, awake, oriented Psych- normal mood, normal affect Assessment and Plan - Assessment and Plan (Free Text) Plan: 77 yo female with history of HTN, Hypothyroidism and OA had right THR on 2017 here in [facility] after failing conservative management of OA of the right hip. She did well with surgery and was transferred to TCU for continuation of PT/OT. 1. Post Right THR pain controlled with percocet and Morphine refer to PT for evaluation and management Zofran PRN for nausea related to pain medication 2. Hypothyroid continue Levothyroxine 100mcg PO daily 3. Anemia received 1 unit of PRBC HgB: 8.1 (11/22/17) continue iron supplement 4. Constipation due to opioids - Continue Colace 100 mg po BID - Milk of magnesia PRN
[2017-11-25] MEDS: POLYETHYLENE GLYCOL 3350 17 GM/Dose PACKET PO PRN (21:33)
[2017-11-26] MEDS: Levothyroxine 100 MCG TAB PO SCH (06:10)
[2017-11-26 06:35] LABS: HEMOGLOBIN 7.8 g/dL (12.0-16.0); MEAN CELL VOLUME 84.9 fl (81.0-99.0); MEAN CORPUSCULAR HEMOGLOBIN 28.4 pg (27.0-31.0); MEAN CORPUSCULAR HGB CONC 33.4 g/dL (33.0-37.0); RBC 2.76 Mil/uL (3.80-5.20); RED CELL DISTRIBUTION WIDTH 13.2 % (11.5-14.5); WHITE BLOOD COUNT 4.6 K/uL (4.8-10.8)
[2017-11-26] MEDS: Enoxaparin 40 mg Syringe SC SCH (09:00)
[2017-11-26] MEDS: Pantoprazole 40 mg EC Tab PO SCH (09:01)
[2017-11-26] MEDS: POLYETHYLENE GLYCOL 3350 17 GM/Dose PACKET PO PRN (21:45)
[2017-11-27] MEDS: Levothyroxine 100 MCG TAB PO SCH (05:29)
[2017-11-27 07:51] LABS: HEMOGLOBIN 8.6 g/dL (12.0-16.0); MEAN CELL VOLUME 84.6 fl (81.0-99.0); MEAN CORPUSCULAR HEMOGLOBIN 28.5 pg (27.0-31.0); MEAN CORPUSCULAR HGB CONC 33.6 g/dL (33.0-37.0); RBC 3.04 Mil/uL (3.80-5.20); RED CELL DISTRIBUTION WIDTH 13.3 % (11.5-14.5)
[2017-11-27] MEDS: Enoxaparin 40 mg Syringe SC SCH (08:45)
[2017-11-27] MEDS: Pantoprazole 40 mg EC Tab PO SCH (08:46)
--- NOTE | 2017-11-27 19:23 | CP.PCM.PN ---
Subjective - Date & Time of Evaluation Date of Evaluation: 11/27/17 Time of Evaluation: 18:00 - Subjective Subjective: Patient seen at bedside. Has no new complaints. Pain is controlled. Continues to complain of abdominal cramping. Had BM yesterday. Objective - Vital Signs/Intake and Output Vital Signs (last 24 hours): Temp Pulse Resp BP Pulse Ox 98.2 F 79 20 98/54 L 98 11/27/17 16:34 11/27/17 16:34 11/27/17 16:34 11/27/17 16:34 11/27/17 16:34 - Medications Medications: Current Medications Acetaminophen (Tylenol 325mg Tab) 650 mg PO Q6 PRN PRN Reason: Pain, Mild (1-3) Last Admin: 11/24/17 21:45 Dose: 650 mg Dicyclomine HCl (Bentyl) 10 mg PO QID [facility] Docusate Sodium (Colace) 100 mg PO BID [facility] Last Admin: 11/27/17 16:16 Dose: 100 mg Enoxaparin Sodium (Lovenox) 40 mg SC DAILY [facility] PRN Reason: Protocol Last Admin: 11/27/17 08:45 Dose: 40 mg Ferrous Sulfate (Feosol) 325 mg PO BID [facility] Last Admin: 11/27/17 16:16 Dose: 325 mg Ibuprofen (Motrin Tab) 600 mg PO Q6 PRN PRN Reason: Other Last Admin: 11/26/17 13:28 Dose: 600 mg Levothyroxine Sodium (Synthroid) 100 mcg PO DAILY@0630 [facility] Last Admin: 11/27/17 05:29 Dose: 100 mcg Metoclopramide HCl (Reglan) 5 mg IVP Q6 PRN PRN Reason: Nausea/Vomiting Morphine Sulfate (Morphine) 2 mg IVP Q4 PRN PRN Reason: Pain, severe (8-10) Ondansetron HCl (Zofran Odt) 4 mg PO Q8H PRN PRN Reason: Nausea/Vomiting Pantoprazole Sodium (Protonix Ec Tab) 40 mg PO DAILY [facility] Last Admin: 11/27/17 08:46 Dose: 40 mg Polyethylene Glycol (Miralax) 17 gm PO DAILY PRN PRN Reason: Constipation Last Admin: 11/26/17 21:45 Dose: 17 gm - Labs Labs: 11/27/17 07:30 - Additional Findings Additional findings: Physical exam: Constitutional- cooperative, awake, alert Head- NCAT, PERRL Eye- PERRL, EOMI ENT- normal exam, MMM. Neck- normal inspection, supple, no JVD Respiratory- CTAB, no wheezes rales rhonchi Cardiovascular- RRR, +S1, +S2 no MRG GI/Abdominal- normal bowel sounds, soft, no mass, no hsm Skin- warm, dry Extremities Exam- normal capillary refill, normal inspection + limited ROM of the right hip. Neurological Exam- alert, awake, oriented Psych- normal mood, normal affect Assessment and Plan - Assessment and Plan (Free Text) Plan: 77 yo female with history of HTN, Hypothyroidism and OA had right THR on 2017 here in [facility] after failing conservative management of OA of the right hip. She did well with surgery and was transferred to TCU for continuation of PT/OT. 1. Post Right THR pain controlled with percocet and Morphine refer to PT for evaluation and management Zofran PRN for nausea related to pain medication 2. Hypothyroid continue Levothyroxine 100mcg PO daily 3. Anemia received 1 unit of PRBC HgB: 8.1--> 7.8->8.6 recheck continue iron supplement 4. Constipation due to opioids - Continue Colace 100 mg po BID - Milk of magnesia PRN - Bentyl for abdominal cramping
[2017-11-27] MEDS ORDERED: Oxycodone/Acetaminophen 5/325 mg Tab PO PRN (21:54)
[2017-11-28] MEDS: Levothyroxine 100 MCG TAB PO SCH (06:43)
[2017-11-28 07:39] LABS: HEMOGLOBIN 8.5 g/dL (12.0-16.0); MEAN CELL VOLUME 84.3 fl (81.0-99.0); MEAN CORPUSCULAR HEMOGLOBIN 28.3 pg (27.0-31.0); MEAN CORPUSCULAR HGB CONC 33.6 g/dL (33.0-37.0); RED CELL DISTRIBUTION WIDTH 13.3 % (11.5-14.5); WHITE BLOOD COUNT 6.1 K/uL (4.8-10.8)
[2017-11-28] MEDS: Enoxaparin 40 mg Syringe SC SCH (08:19)
[2017-11-28] MEDS: Pantoprazole 40 mg EC Tab PO SCH (08:20)
[2017-11-28] MEDS: POLYETHYLENE GLYCOL 3350 17 GM/Dose PACKET PO PRN (18:28)
[2017-11-29] MEDS: Levothyroxine 100 MCG TAB PO SCH (06:08)
[2017-11-29] MEDS: Enoxaparin 40 mg Syringe SC SCH (08:38)
[2017-11-29] MEDS: Pantoprazole 40 mg EC Tab PO SCH (08:39)
--- NOTE | 2017-11-29 14:19 | CP.PCM.PN ---
Subjective - Date & Time of Evaluation Date of Evaluation: 11/29/17 Time of Evaluation: 12:15 - Subjective Subjective: S- pt OOB and comfortable Objective - Vital Signs/Intake and Output Vital Signs (last 24 hours): Temp Pulse Resp BP Pulse Ox 99.0 F 72 20 111/57 L 96 11/29/17 08:13 11/29/17 08:13 11/29/17 08:13 11/29/17 08:13 11/29/17 08:13 - Medications Medications: Current Medications Acetaminophen (Tylenol 325mg Tab) 650 mg PO Q6 PRN PRN Reason: Pain, Mild (1-3) Last Admin: 11/24/17 21:45 Dose: 650 mg Dicyclomine HCl (Bentyl) 10 mg PO QID [facility] Last Admin: 11/29/17 13:21 Dose: 10 mg Docusate Sodium (Colace) 100 mg PO BID [facility] Last Admin: 11/29/17 08:37 Dose: 100 mg Enoxaparin Sodium (Lovenox) 40 mg SC DAILY [facility] PRN Reason: Protocol Last Admin: 11/29/17 08:38 Dose: 40 mg Ferrous Sulfate (Feosol) 325 mg PO BID [facility] Last Admin: 11/29/17 08:38 Dose: 325 mg Ibuprofen (Motrin Tab) 600 mg PO Q6 PRN PRN Reason: Other Last Admin: 11/26/17 13:28 Dose: 600 mg Levothyroxine Sodium (Synthroid) 100 mcg PO DAILY@0630 [facility] Last Admin: 11/29/17 06:08 Dose: 100 mcg Metoclopramide HCl (Reglan) 5 mg IVP Q6 PRN PRN Reason: Nausea/Vomiting Morphine Sulfate (Morphine) 2 mg IVP Q4 PRN PRN Reason: Pain, severe (8-10) Ondansetron HCl (Zofran Odt) 4 mg PO Q8H PRN PRN Reason: Nausea/Vomiting Oxycodone/Acetaminophen (Percocet 5/325 Mg Tab) 1 tab PO Q6 PRN PRN Reason: Pain scale 4-10 and before PT Stop: 11/30/17 21:55 Last Admin: 11/28/17 08:24 Dose: 1 tab Pantoprazole Sodium (Protonix Ec Tab) 40 mg PO DAILY [facility] Last Admin: 11/29/17 08:39 Dose: 40 mg Polyethylene Glycol (Miralax) 17 gm PO DAILY PRN PRN Reason: Constipation Last Admin: 11/28/17 18:28 Dose: 17 gm - Labs Labs: 11/28/17 07:15 - Skin Additional comments: Objective systemic wnl Musculoskekltal stance/gait- deferred pt OOB and comfortable orthopedially stable Assessment and Plan - Assessment and Plan (Free Text) Assessment: A- successful THR P- orthopedically stable
[2017-11-29] MEDS: POLYETHYLENE GLYCOL 3350 17 GM/Dose PACKET PO PRN (17:14)
[2017-11-30] MEDS: Levothyroxine 100 MCG TAB PO SCH (06:35)
[2017-11-30] MEDS: Pantoprazole 40 mg EC Tab PO SCH (08:25)
[2017-11-30] MEDS: POLYETHYLENE GLYCOL 3350 17 GM/Dose PACKET PO PRN (08:25)
[2017-11-30] MEDS: Enoxaparin 40 mg Syringe SC SCH (08:25)
[2017-11-30] MEDS ORDERED: Magnesium Citrate Oral SOL (300 ml) PO ONE (09:24)
[2017-11-30] MEDS ORDERED: Oxycodone/Acetaminophen 5/325 mg Tab PO PRN (14:58)
[2017-12-01] MEDS: Pantoprazole 40 mg EC Tab PO SCH (06:14)
[2017-12-01] MEDS: Levothyroxine 100 MCG TAB PO SCH (06:14)
[2017-12-01] MEDS: Oxycodone/Acetaminophen 5/325 mg Tab PO PRN (08:37)
[2017-12-01] MEDS: Enoxaparin 40 mg Syringe SC SCH (11:10)
[2017-12-01 11:26] LABS: HEMOGLOBIN 8.9 g/dL (12.0-16.0); MEAN CORPUSCULAR HEMOGLOBIN 28.6 pg (27.0-31.0); MEAN CORPUSCULAR HGB CONC 33.7 g/dL (33.0-37.0); RBC 3.1 Mil/uL (3.80-5.20); RED CELL DISTRIBUTION WIDTH 13.9 % (11.5-14.5); WHITE BLOOD COUNT 6.1 K/uL (4.8-10.8)
--- NOTE | 2017-12-01 12:48 | CP.PCM.PN ---
Subjective - Date & Time of Evaluation Date of Evaluation: 12/01/17 Time of Evaluation: 10:00 - Subjective Subjective: Patient seen and examined OOB to chair comfortable. No complaints of pain. No new complaints. Objective - Vital Signs/Intake and Output Vital Signs (last 24 hours): Temp Pulse Resp BP Pulse Ox 97.3 F L 64 20 131/61 99 12/01/17 08:10 12/01/17 09:33 12/01/17 08:10 12/01/17 08:10 12/01/17 09:33 - Medications Medications: Current Medications Acetaminophen (Tylenol 325mg Tab) 650 mg PO Q6 PRN PRN Reason: Pain, Mild (1-3) Last Admin: 11/24/17 21:45 Dose: 650 mg Dicyclomine HCl (Bentyl) 10 mg PO QID [facility] Last Admin: 12/01/17 12:29 Dose: 10 mg Docusate Sodium (Colace) 100 mg PO BID [facility] Last Admin: 12/01/17 08:22 Dose: 100 mg Enoxaparin Sodium (Lovenox) 40 mg SC DAILY [facility] PRN Reason: Protocol Last Admin: 12/01/17 11:10 Dose: 40 mg Ferrous Sulfate (Feosol) 325 mg PO BID [facility] Last Admin: 12/01/17 08:22 Dose: 325 mg Ibuprofen (Motrin Tab) 600 mg PO Q6 PRN PRN Reason: Other Last Admin: 11/26/17 13:28 Dose: 600 mg Levothyroxine Sodium (Synthroid) 100 mcg PO DAILY@0630 [facility] Last Admin: 12/01/17 06:14 Dose: 100 mcg Ondansetron HCl (Zofran Odt) 4 mg PO Q8H PRN PRN Reason: Nausea/Vomiting Oxycodone/Acetaminophen (Percocet 5/325 Mg Tab) 1 tab PO Q6 PRN PRN Reason: Pain, moderate (4-7) Stop: 12/04/17 08:27 Last Admin: 12/01/17 08:37 Dose: 1 tab Pantoprazole Sodium (Protonix Ec Tab) 40 mg PO DAILY@0630 [facility] Last Admin: 12/01/17 06:14 Dose: 40 mg Polyethylene Glycol (Miralax) 17 gm PO DAILY PRN PRN Reason: Constipation Last Admin: 11/30/17 08:25 Dose: 17 gm - Labs Labs: 12/01/17 11:18 - Back Exam Additional comments: R hip: Moderate proximal thigh swelling, Wound clean dry and intact with tenzin , well healed blisters medially at the ends of the distal steri strips Sensation intact SP/DP/TN Motor intact EHL/FHL/TA/G pedal pulses intact compartments soft/NT b/l Assessment and Plan (1) Primary osteoarthritis of right hip Assessment & Plan: POD#11 s/p R VIDAL doing well -PT/OT WBAT with assistive device -DVT ppx -orthopedically stable -Above d/w Dr. Fernando in agreement Status: Acute
[2017-12-01] MEDS: POLYETHYLENE GLYCOL 3350 17 GM/Dose PACKET PO PRN (22:23)
[2017-12-02] MEDS: Pantoprazole 40 mg EC Tab PO SCH (06:26)
[2017-12-02] MEDS: Levothyroxine 100 MCG TAB PO SCH (06:26)
[2017-12-02] MEDS: Enoxaparin 40 mg Syringe SC SCH (08:18)
[2017-12-02] MEDS: Oxycodone/Acetaminophen 5/325 mg Tab PO PRN (08:23)
--- NOTE | 2017-12-02 13:39 | CP.PCM.PN ---
Subjective - Date & Time of Evaluation Date of Evaluation: 12/02/17 Time of Evaluation: 13:38 - Subjective Subjective: COMPLAINS OF SOME CONSTIPATION STATES METAMUCIL WITH MOM WORKS AT HOME OTHERWISE COMFORTABLE PARTICIPATING WITH PT WELL HD STABLE NAD Objective - Vital Signs/Intake and Output Vital Signs (last 24 hours): Temp Pulse Resp BP Pulse Ox 98 F 70 20 133/69 98 12/02/17 09:57 12/02/17 09:57 12/02/17 09:57 12/02/17 09:57 12/02/17 09:57 - Medications Medications: Current Medications Acetaminophen (Tylenol 325mg Tab) 650 mg PO Q6 PRN PRN Reason: Pain, Mild (1-3) Last Admin: 11/24/17 21:45 Dose: 650 mg Dicyclomine HCl (Bentyl) 10 mg PO QID [facility] Last Admin: 12/02/17 13:12 Dose: 10 mg Docusate Sodium (Colace) 100 mg PO BID [facility] Last Admin: 12/02/17 08:17 Dose: 100 mg Enoxaparin Sodium (Lovenox) 40 mg SC DAILY [facility] PRN Reason: Protocol Last Admin: 12/02/17 08:18 Dose: 40 mg Ferrous Sulfate (Feosol) 325 mg PO BID [facility] Last Admin: 12/02/17 08:17 Dose: 325 mg Ibuprofen (Motrin Tab) 600 mg PO Q6 PRN PRN Reason: Other Last Admin: 11/26/17 13:28 Dose: 600 mg Levothyroxine Sodium (Synthroid) 100 mcg PO DAILY@0630 [facility] Last Admin: 12/02/17 06:26 Dose: 100 mcg Ondansetron HCl (Zofran Odt) 4 mg PO Q8H PRN PRN Reason: Nausea/Vomiting Oxycodone/Acetaminophen (Percocet 5/325 Mg Tab) 1 tab PO Q6 PRN PRN Reason: Pain, moderate (4-7) Stop: 12/04/17 08:27 Last Admin: 12/02/17 08:23 Dose: 1 tab Pantoprazole Sodium (Protonix Ec Tab) 40 mg PO DAILY@0630 [facility] Last Admin: 12/02/17 06:26 Dose: 40 mg Polyethylene Glycol (Miralax) 17 gm PO DAILY PRN PRN Reason: Constipation Last Admin: 12/01/17 22:23 Dose: 17 gm - Labs Labs: 12/01/17 11:18 - Constitutional Appears: Non-toxic, No Acute Distress - Head Exam Head Exam: ATRAUMATIC, NORMOCEPHALIC - Eye Exam Eye Exam: EOMI, Normal appearance, PERRL - ENT Exam ENT Exam: Mucous Membranes Moist, Normal Oropharynx - Neck Exam Neck Exam: Normal Inspection. absent: Lymphadenopathy - Respiratory Exam Respiratory Exam: Clear to Ausculation Bilateral, NORMAL BREATHING PATTERN - Cardiovascular Exam Cardiovascular Exam: REGULAR RHYTHM, +S1, +S2. absent: Murmur - GI/Abdominal Exam GI & Abdominal Exam: Soft, Normal Bowel Sounds. absent: Tenderness - Extremities Exam Extremities Exam: Normal Capillary Refill. absent: Calf Tenderness - Back Exam Back Exam: absent: CVA tenderness (L), CVA tenderness (R) - Neurological Exam Neurological Exam: Alert, Awake, Oriented x3 - Psychiatric Exam Psychiatric exam: Normal Affect, Normal Mood - Skin Skin Exam: Dry, Intact, Normal Color, Warm Assessment and Plan - Assessment and Plan (Free Text) Plan: 77 yo female with history of HTN, Hypothyroidism and OA had right THR on 2017 here in [facility] after failing conservative management of OA of the right hip. She did well with surgery and was transferred to TCU for continuation of PT/OT. 1. Post Right THR pain controlled with percocet and Morphine refer to PT for evaluation and management Zofran PRN for nausea related to pain medication 2. Hypothyroid continue Levothyroxine 100mcg PO daily 3. Anemia received 1 unit of PRBC HgB: 8.1--> 7.8->8.6 recheck continue iron supplement 4. Constipation due to opioids - Continue Colace 100 mg po BID - Milk of magnesia PRN - Bentyl for abdominal cramping
[2017-12-02] MEDS: Psyllium Packet PO SCH (21:39)
[2017-12-02] MEDS: Magnesium Hydroxide Susp 30 ml UD PO SCH (21:42)
[2017-12-03] MEDS: Levothyroxine 100 MCG TAB PO SCH (05:35)
[2017-12-03] MEDS: Pantoprazole 40 mg EC Tab PO SCH (05:36)
[2017-12-03] MEDS: Oxycodone/Acetaminophen 5/325 mg Tab PO PRN (08:54)
[2017-12-03] MEDS: Enoxaparin 40 mg Syringe SC SCH (08:57)
[2017-12-03] MEDS: POLYETHYLENE GLYCOL 3350 17 GM/Dose PACKET PO PRN (16:55)
[2017-12-03] MEDS: Psyllium Packet PO SCH (21:11)
[2017-12-03] MEDS: Magnesium Hydroxide Susp 30 ml UD PO SCH (21:11)
[2017-12-04] MEDS: Pantoprazole 40 mg EC Tab PO SCH (06:11)
[2017-12-04] MEDS: Levothyroxine 100 MCG TAB PO SCH (06:11)
[2017-12-04] MEDS: Enoxaparin 40 mg Syringe SC SCH (08:36)
[2017-12-04 08:41] VITALS: BP 126/60; PULSE 60; TEMP 97.5; O2SAT 100
--- NOTE | 2017-12-04 12:37 | CP.PCM.PN ---
Subjective - Date & Time of Evaluation Date of Evaluation: 12/04/17 Time of Evaluation: 12:34 - Subjective Subjective: Patient states pain is improving, no new complaints. Objective - Vital Signs/Intake and Output Vital Signs (last 24 hours): Temp Pulse Resp BP Pulse Ox 97.5 F L 60 20 126/60 100 12/04/17 08:41 12/04/17 08:41 12/04/17 08:41 12/04/17 08:41 12/04/17 08:41 - Medications Medications: Current Medications Acetaminophen (Tylenol 325mg Tab) 650 mg PO Q6 PRN PRN Reason: Pain, Mild (1-3) Last Admin: 12/04/17 02:40 Dose: 650 mg Dicyclomine HCl (Bentyl) 10 mg PO QID [facility] Last Admin: 12/04/17 08:36 Dose: 10 mg Docusate Sodium (Colace) 100 mg PO BID [facility] Last Admin: 12/04/17 08:37 Dose: 100 mg Ferrous Sulfate (Feosol) 325 mg PO BID [facility] Last Admin: 12/04/17 08:35 Dose: 325 mg Ibuprofen (Motrin Tab) 600 mg PO Q6 PRN PRN Reason: Other Last Admin: 12/04/17 08:38 Dose: 600 mg Levothyroxine Sodium (Synthroid) 100 mcg PO DAILY@0630 [facility] Last Admin: 12/04/17 06:11 Dose: 100 mcg Magnesium Hydroxide (Milk Of Magnesia) 30 ml PO [facility] Last Admin: 12/03/17 21:11 Dose: 30 ml Ondansetron HCl (Zofran Odt) 4 mg PO Q8H PRN PRN Reason: Nausea/Vomiting Pantoprazole Sodium (Protonix Ec Tab) 40 mg PO DAILY@0630 [facility] Last Admin: 12/04/17 06:11 Dose: 40 mg Polyethylene Glycol (Miralax) 17 gm PO DAILY PRN PRN Reason: Constipation Last Admin: 12/03/17 16:55 Dose: 17 gm Psyllium Hydrophilic Mucilloid (Hydrocil Instant) 1 pkt PO [facility] Last Admin: 12/03/17 21:11 Dose: 1 pkt - Labs Labs: 12/01/17 11:18 - Extremities Exam Additional comments: Incision intact, healing well, small superficial scab/eschar anterior to incision line from tension blister, healing well, incision dry, intact, healing very well. Thigh swelling improved, +ROM ankle/toes, sensation intact +DP/PT pulses calves soft NT neg homans Assessment and Plan (1) Primary osteoarthritis of right hip Assessment & Plan: 2 weeks s/p right THR d/c home today f/u in office 12/09 aspiring 81mg PO BID for VTE proph ambulation as tolerated keep incision covered during shower d/w Dr. Fernando, agrees with above Status: Acute
--- NOTE | 2017-12-04 13:39 | CP.PCM.DIS ---
Provider - Provider Date of Admission: 11/22/17 13:50 Attending physician: Gianna Murcia DO Primary care physician: Vishnu Fernando III, MD Consults: Dr Fernando Time Spent in preparation of Discharge (in minutes): 25 Diagnosis - Discharge Diagnosis (1) Status post total hip replacement, right Status: Acute Comment: continue PT at home. follow up with Dr Fernando (2) Hypothyroidism Status: Chronic Comment: continue Levothyroxine Hospital Course - Lab Results Lab Results: Most Recent Lab Values WBC 6.1 K/uL (4.8-10.8) 12/01/17 11:18 RBC 3.10 Mil/uL (3.80-5.20) L 12/01/17 11:18 Hgb 8.9 g/dL (12.0-16.0) L 12/01/17 11:18 Hct 26.4 % (34.0-47.0) L 12/01/17 11:18 MCV 85.0 fl (81.0-99.0) 12/01/17 11:18 MCH 28.6 pg (27.0-31.0) 12/01/17 11:18 MCHC 33.7 g/dL (33.0-37.0) 12/01/17 11:18 RDW 13.9 % (11.5-14.5) 12/01/17 11:18 Plt Count 454 K/uL (130-400) H 12/01/17 11:18 - Hospital Course Hospital Course: 77 yo female with history of HTN, Hypothyroidism and OA had right THR on 2017 here in [facility] after failing conservative management. Post op days were uneventful and patient was transferred to TCU where she continued her therapy. Patient did well and now was discharged in stable condition. Discharge Exam - Head Exam Head Exam: ATRAUMATIC, NORMOCEPHALIC - Eye Exam Eye Exam: absent: Scleral icterus - ENT Exam ENT Exam: Mucous Membranes Moist - Respiratory Exam Respiratory Exam: absent: Rales, Rhonchi, Wheezes, Respiratory Distress - Cardiovascular Exam Cardiovascular Exam: REGULAR RHYTHM, +S1, +S2 - GI/Abdominal Exam GI & Abdominal Exam: Soft. absent: Tenderness - Rectal Exam Rectal Exam: Deferred - Neurological Exam Neurological exam: Alert, Oriented x3 - Psychiatric Exam Psychiatric exam: Normal Affect - Skin Skin Exam: Dry, Intact Discharge Plan - Discharge Medications Prescriptions: Aspirin [Aspirin EC] 325 mg PO BID #60 ect oxyCODONE/Acetaminophen [Percocet 5/325 mg Tab] 1 tab PO Q4 PRN #20 tab PRN Reason: Pain, Moderate (4-7) - Follow Up Plan Condition: GOOD Disposition: HOME/ ROUTINE Instructions: Total Hip Replacement (DC) Referrals: Vishnu Fernando III, MD [Primary Care Provider] -
== END 2017-12-04 14:15 | disposition home or self-care (01) | DRG 561 ==
LOC: H.TCU 13:50
PROVIDERS: ADMIT Student in an Organized Health Care Education/Training Program; ATTEND Student in an Organized Health Care Education/Training Program
PROC: F07Z9FZ Gait Training/Functional Ambulation Treatment using Assistive, Adaptive, Supportive or Protective Equipment (ICD-10-PCS; principal; 2017-11-22)
PROC: F08Z4FZ Home Management Treatment using Assistive, Adaptive, Supportive or Protective Equipment (ICD-10-PCS; 2017-11-22)
PROC: F07L6FZ Therapeutic Exercise Treatment of Musculoskeletal System - Lower Back / Lower Extremity using Assistive, Adaptive, Supportive or Protective Equipment (ICD-10-PCS; 2017-11-22)
DX: Z47.1 Aftercare following joint replacement surgery (principal); Z96.641 Presence of right artificial hip joint; M16.11 Unilateral primary osteoarthritis, right hip; E03.9 Hypothyroidism, unspecified; D64.9 Anemia, unspecified; I10 Essential (primary) hypertension; K59.03 Drug induced constipation; T40.2X5A Adverse effect of other opioids, initial encounter; G89.18 Other acute postprocedural pain; K21.9 Gastro-esophageal reflux disease without esophagitis

== ENCOUNTER 2018-07-30 06:44 | Observation (INO) | payer MEDICARE, OTHER ==
[2018-07-30 06:44] VITALS: BMI 24.1
--- NOTE | 2018-07-30 08:15 | CP.PCM.CON ---
History of Present Illness - History of Present Illness History of Present Illness: Orthopedic consult: Dr. Fernando Patient is a 77 y/o RHD female who presents to the [facility] ER with complaints of left elbow pain. She reports tripping over her footing 6 days ago outdoors and landing on her outstretched left hand. The patient denies dizziness and LOC. She presented to [facility] ER, was diagnosed with a left radial head fracture and sent home with a posterior splint. She presents to the ER today with worsening pain. Currently her pain is moderate, dull and intermittent. There is associated swelling and the pain worsens with movement. There is minimal pain at rest. She denies any radiation of pain/numbness/tingling. The patient denies CP/SOB/N/V/D/fever/dysuria/melena. Review of Systems - Review of Systems All systems: reviewed and no additional remarkable complaints except Review of Systems: as per HPI Past Patient History - Past Medical History & Family History Past Medical History?: Yes Past Family History: Reviewed and not pertinent - Past Social History Smoking Status: Never Smoked Alcohol: None Drugs: Denies - CARDIAC Hx Hypertension: Yes - PULMONARY Hx Respiratory Disorders: No - NEUROLOGICAL Hx Neurological Disorder: No - HEENT Hx HEENT Problems: Yes Hx Cataracts: Yes - RENAL Hx Chronic Kidney Disease: No - ENDOCRINE/METABOLIC Hx Endocrine Disorders: No Hx Hypothyroidism: Yes - HEMATOLOGICAL/ONCOLOGICAL Hx Blood Disorders: No - INTEGUMENTARY Hx Dermatological Problems: No - MUSCULOSKELETAL/RHEUMATOLOGICAL Hx Arthritis: Yes - GASTROINTESTINAL Hx Gastrointestinal Disorders: Yes Hx Gastroesophageal Reflux: Yes Other/Comment: REMOVAL OF CYST IN STOMACH, acid reflux - GENITOURINARY/GYNECOLOGICAL Hx Genitourinary Disorders: No - PSYCHIATRIC Hx Emotional Abuse: No Hx Physical Abuse: No Hx Substance Use: No - SURGICAL HISTORY Hx Surgeries: Yes Hx Hysterectomy: Yes (PARTIAL) Hx Musculoskeletal Surgery: Yes (BILATERAL bunionectomy 2016) Hx Orthopedic Surgery: Yes (left wrtst carpal tunnel) Hx Thyroidectomy: Yes (REJI THYROIDECTOMY 20 YRS) Other/Comment: cyst on stomach - ANESTHESIA Hx Anesthesia: Yes Hx Anesthesia Reactions: No Hx Malignant Hyperthermia: No Meds Home Medications: Home Medication List Medication Instructions Recorded Confirmed Type Acetaminophen with Codeine 1 each PO Q4H PRN #30 tablet 07/30/18 Rx [Tylenol with Codeine #3 Tablet] Allergies/Adverse Reactions: Allergies Allergy/AdvReac Type Severity Reaction Status Date / Time No Known Allergies Allergy Verified 11/22/17 14:41 - Medications Medications: Current Medications Sodium Chloride (Sodium Chloride 0.45%) 500 mls @ 100 mls/hr IV .Q5H OLGA Stop: 07/31/18 07:31 Last Admin: 07/30/18 07:56 Dose: 100 mls/hr Physical Exam - Constitutional Appears: Well, No Acute Distress - Head Exam Head Exam: ATRAUMATIC, NORMOCEPHALIC - Eye Exam Eye Exam: EOMI, Normal appearance, PERRL - ENT Exam ENT Exam: Mucous Membranes Moist - Respiratory Exam Respiratory Exam: NORMAL BREATHING PATTERN - Cardiovascular Exam Cardiovascular Exam: +S1, +S2 - GI/Abdominal Exam GI & Abdominal Exam: Soft. absent: Tenderness - Extremities Exam Additional comments: LUE: posterior splint CDI sensation and motor intact MN/UN/RN radial pulse intact comps soft NT RUE: no masses/lesions sensation and motor intact MN/UN/RN radial pulse intact comps soft NT - Neurological Exam Neurological exam: Alert, Oriented x3 - Psychiatric Exam Psychiatric exam: Normal Affect, Normal Mood - Skin Skin Exam: Normal Color, Warm Results - Vital Signs Recent Vital Signs: Last Vital Signs Temp 98.0 F 07/30/18 06:53 Pulse 73 07/30/18 06:53 Resp 17 07/30/18 06:53 BP 185/78 H 07/30/18 06:53 Pulse Ox 98 07/30/18 06:53 - Labs Result Diagrams: 07/30/18 07:50 07/30/18 07:50 Assessment & Plan (1) Left radial head fracture Assessment and Plan: -L elbow xray -CXR -EKG -Routine preop labs -admit to hospitalist -NPO -Dr. Fernando recommends OR today for L radial head ORIF, possible ligament repair -Risks/benefits/alternatives were explained to patient who understands and agrees to proceed with above procedure -Above d/w Dr. Fernando in agreement Status: Acute
[2018-07-30 08:18] LABS: BASO % 0.7 % (0.0-2.0); EOS # 0.1 K/uL (0.0-0.7); EOS % 2.6 % (0.0-4.0); HEMOGLOBIN 11.4 g/dL (12.0-16.0); LYMPH # 1.2 K/uL (1.0-4.3); LYMPH % 26.9 % (20.0-40.0); MEAN CORPUSCULAR HEMOGLOBIN 26.7 pg (27.0-31.0); MEAN CORPUSCULAR HGB CONC 32.6 g/dL (33.0-37.0); MEAN PLATELET VOLUME 9.2 fl (7.2-11.7); MONO # 0.6 K/uL (0.0-0.8); MONO % 12.7 % (0.0-10.0); NEUT # 2.5 K/uL (1.8-7.0); NEUT % 57.1 % (50.0-75.0); NRBC % 0.6 % (0.0-0.0); RBC 4.25 Mil/uL (3.80-5.20); RED CELL DISTRIBUTION WIDTH 15.2 % (11.5-14.5); WHITE BLOOD COUNT 4.4 K/uL (4.8-10.8)
[2018-07-30 08:20] LABS: INR 0.9; PROTHROMBIN TIME 10.5 Seconds (9.8-13.1)
[2018-07-30 08:23] LABS: PARTIAL THROMBOPLASTIN TIME 30.8 Seconds (25.6-37.1)
[2018-07-30 08:32] LABS: ALB/GLOB RATIO 1.3 (1.0-2.1); ALBUMIN 4.1 g/dL (3.5-5.0); ALT/SGPT 20 U/L (9-52); AST/SGOT 24 U/L (14-36); BLOOD UREA NITROGEN 19 mg/dl (7-17); GFR NON-AFRICAN AMERICAN > 60
--- NOTE | 2018-07-30 08:37 | RAD ---
Date of service: 07/30/2018 PROCEDURE: Radiographs of the left elbow. HISTORY: fall COMPARISON: No prior. FINDINGS: BONES: Small chip or avulsion fracture seen related to the lateral margins of the proximal left ulna with limited articular involvement suspected. Radial head appears intact. Limited posterior joint effusion evident. JOINTS: No dislocation identified. SOFT TISSUES: Normal. JOINT EFFUSION: None. OTHER FINDINGS: None IMPRESSION: Chip or avulsion fracture identified at the proximal left ulna likely with articular involvement. No dislocation subluxation left elbow.
--- NOTE | 2018-07-30 09:23 | CP.PCM.HP ---
History of Present Illness - History of Present Illness History of Present Illness: 77 yo female with pmhx of hypothyroidism and gastric reflux seen and evaluated in the ED with left elbow fracture. States that she fell last Friday on her elbow while in her home and went on Friday to [facility] where she had imag ing studies done on her elbow. States she did not get dizzy before she fell or hit her head. States she does not fall regularly. States she saw Dr. Fernando on Friday who instructed her to come into the hospital for surgical repair of the left elbow as MRI imagining showed possible ligamentous damage. She denies pain today except upon motion. Presents with an ESTRELLA compression wrap on her left elbow. Denies N/V/F/C/SOB/CP and has no other complaints. PMHx: hypothyroidism, gastric reflux PSHx: right hip replacement in November of this year, b/l bunion repair, plate in left forearm FH: noncontributory SH: denies smoking or alcohol use All: NKDA Present on Admission - Present on Admission Any Indicators Present on Admission: No Past Patient History - Past Medical History & Family History Past Medical History?: Yes Past Family History: Reviewed and not pertinent - Past Social History Smoking Status: Never Smoked Alcohol: None Drugs: Denies - CARDIAC Hx Hypertension: Yes - PULMONARY Hx Respiratory Disorders: No - NEUROLOGICAL Hx Neurological Disorder: No - HEENT Hx HEENT Problems: Yes Hx Cataracts: Yes - RENAL Hx Chronic Kidney Disease: No - ENDOCRINE/METABOLIC Hx Endocrine Disorders: No Hx Hypothyroidism: Yes - HEMATOLOGICAL/ONCOLOGICAL Hx Blood Disorders: No - INTEGUMENTARY Hx Dermatological Problems: No - MUSCULOSKELETAL/RHEUMATOLOGICAL Hx Arthritis: Yes - GASTROINTESTINAL Hx Gastrointestinal Disorders: Yes Hx Gastroesophageal Reflux: Yes Other/Comment: REMOVAL OF CYST IN STOMACH, acid reflux - GENITOURINARY/GYNECOLOGICAL Hx Genitourinary Disorders: No - PSYCHIATRIC Hx Emotional Abuse: No Hx Physical Abuse: No Hx Substance Use: No - SURGICAL HISTORY Hx Surgeries: Yes Hx Hysterectomy: Yes (PARTIAL) Hx Musculoskeletal Surgery: Yes (BILATERAL bunionectomy 2015) Hx Orthopedic Surgery: Yes (left wrtst carpal tunnel) Hx Thyroidectomy: Yes (REJI THYROIDECTOMY 20 YRS) Other/Comment: cyst on stomach - ANESTHESIA Hx Anesthesia: Yes Hx Anesthesia Reactions: No Hx Malignant Hyperthermia: No Meds Allergies/Adverse Reactions: Allergies Allergy/AdvReac Type Severity Reaction Status Date / Time No Known Allergies Allergy Verified 11/22/17 14:41 Physical Exam - Constitutional Appears: Well, Non-toxic, No Acute Distress - Head Exam Head Exam: ATRAUMATIC, NORMOCEPHALIC - Eye Exam Eye Exam: EOMI, Normal appearance - ENT Exam ENT Exam: Mucous Membranes Moist - Neck Exam Neck exam: Positive for: Normal Inspection - Respiratory Exam Respiratory Exam: Clear to Auscultation Bilateral, NORMAL BREATHING PATTERN - Cardiovascular Exam Cardiovascular Exam: REGULAR RHYTHM, +S1, +S2 - GI/Abdominal Exam GI & Abdominal Exam: Normal Bowel Sounds, Soft - Extremities Exam Additional comments: LUE: posterior splint CDI sensation and motor intact MN/UN/RN radial pulse intact comps soft NT RUE: no masses/lesions sensation and motor intact MN/UN/RN radial pulse intact comps soft NT - Back Exam Back exam: NORMAL INSPECTION - Neurological Exam Neurological exam: Alert, Oriented x3 - Skin Skin Exam: Dry, Normal Color, Warm Results - Vital Signs Recent Vital Signs: Last Vital Signs Temp 98.0 F 07/30/18 06:53 Pulse 61 07/30/18 09:15 Resp 19 07/30/18 09:15 BP 162/89 H 07/30/18 09:15 Pulse Ox 98 07/30/18 08:43 - Labs Result Diagrams: 07/30/18 07:50 07/30/18 07:50 Labs: Laboratory Results - last 24 hr 07/30/18 07/30/18 07/30/18 07:50 07:50 07:50 WBC 4.4 L RBC 4.25 Hgb 11.4 L D Hct 34.9 MCV 82.0 D MCH 26.7 L MCHC 32.6 L RDW 15.2 H Plt Count 196 D MPV 9.2 Neut % (Auto) 57.1 Lymph % (Auto) 26.9 Addison % (Auto) 12.7 H Eos % (Auto) 2.6 Baso % (Auto) 0.7 Neut # (Auto) 2.5 Lymph # (Auto) 1.2 Addison # (Auto) 0.6 Eos # (Auto) 0.1 Baso # (Auto) 0.0 PT 10.5 INR 0.9 APTT 30.8 Sodium 138 Potassium 4.8 Chloride 104 Carbon Dioxide 28 Anion Gap 11 BUN 19 H Creatinine 0.9 Est GFR ( Amer) > 60 Est GFR (Non-Af Amer) > 60 Random Glucose 102 Calcium 9.0 Total Bilirubin 0.5 AST 24 ALT 20 Alkaline Phosphatase 90 Total Protein 7.1 Albumin 4.1 Globulin 3.0 Albumin/Globulin Ratio 1.3 BBK History Checked 07/30/18 07:50 WBC RBC Hgb Hct MCV MCH MCHC RDW Plt Count MPV Neut % (Auto) Lymph % (Auto) Addison % (Auto) Eos % (Auto) Baso % (Auto) Neut # (Auto) Lymph # (Auto) Addison # (Auto) Eos # (Auto) Baso # (Auto) PT INR APTT Sodium Potassium Chloride Carbon Dioxide Anion Gap BUN Creatinine Est GFR ( Amer) Est GFR (Non-Af Amer) Random Glucose Calcium Total Bilirubin AST ALT Alkaline Phosphatase Total Protein Albumin Globulin Albumin/Globulin Ratio BBK History Checked Patient has bt Assessment & Plan - Assessment and Plan (Free Text) Assessment: 77F with pmhx of hypothyroidism and gastric reflux presents to the ED with left elbow fracture Plan: 1. Left elbow fracture - orthopedic consult - Dr. Abdullahi clay, for ORIF of left elbow today - cardiology consult - Dr. Fox aware, f/u recs for clearance as BP elevated on presentation - left elbow x-ray - chip or avulsion fracture identified at the proximal left ulna with unlikely articular involvement; no dislocation or subluxation - CXR pending - f/u - EKG - normal sinus rhythm/HR - maintain NPO status, resume diet after surgery - PT eval and treat - medically optimized for surgery, per Dr. Fox - cleared from cardiac standpoint 2. Elevated BP - follow BP - IV lopressor 5 mg Q4 hrs prn SBP >160, hold HR <60 - IV enalapril 2.5 mg Q6 PRN SBP >160 3. Hypothyoidism - chronic controlled - continue home rx 4. Acid reflux - chronic, controlled - continue home rx 5. Diet - NPO maintained 6. DVT prophylaxis - SCDs - Date & Time Date: 07/30/18 Time: 12:50
[2018-07-30] MEDS ORDERED: EnalaprilAT 1.25 mg/ml Inj IV PRN (09:38)
[2018-07-30] MEDS ORDERED: Metoprolol 1 mg/ml Inj IVP PRN (09:38)
[2018-07-30] MEDS ORDERED: Dextrose 5%/0.45% NS 1,000 ML IV SCH (10:15)
--- NOTE | 2018-07-30 10:43 | CP.PCM.CON ---
History of Present Illness - History of Present Illness History of Present Illness: THE PATIENT IS A 77 YEAR OLD FEMALE WHO TRIPPED 6 DAYS AGO AND SUSTAINED AND SUSTAINED A LEFT ELBOW FRACTURE AND SHE WENT TO THE ER AT [facility] IN [place] WHERE THEY PLACED IT IN A SPLINT. SHE SAW DR ZAVALA A FEW DAYS AGO AND HAD AN MRI AND HE ADVISED SURGERY AND SHE IS AGREEABLE. SHE NOW CAME TO THE ER WITH PAIN AND IT WAS DECIDED TO ADMIT THE PATIENT AND PROCEED WITH SURGERY. SHE STATES THAT SHE JUST TRIPPED AND DID NOT BLACK OUT. SHE DENIES CHEST PAIN, PALPITATIONS OR SOB. HER BLOOD PRESSURE WAS HIGH IN THE ER BUT CAME DOWN ON ITS OWN. SHE HAD HALF OF HER THYROID REMOVED 20 YEARS AGO FOR A NODULE AND IS ON LEVOTHYROXINE. Past Patient History - Past Medical History & Family History Past Medical History?: Yes Past Family History: Reviewed and not pertinent - Past Social History Smoking Status: Never Smoked Alcohol: None Drugs: Denies - CARDIAC Hx Hypertension: Yes - PULMONARY Hx Respiratory Disorders: No - NEUROLOGICAL Hx Neurological Disorder: No - HEENT Hx HEENT Problems: Yes Hx Cataracts: Yes - RENAL Hx Chronic Kidney Disease: No - ENDOCRINE/METABOLIC Hx Endocrine Disorders: No Hx Hypothyroidism: Yes - HEMATOLOGICAL/ONCOLOGICAL Hx Blood Disorders: No - INTEGUMENTARY Hx Dermatological Problems: No - MUSCULOSKELETAL/RHEUMATOLOGICAL Hx Arthritis: Yes - GASTROINTESTINAL Hx Gastrointestinal Disorders: Yes Hx Gastroesophageal Reflux: Yes Other/Comment: REMOVAL OF CYST IN STOMACH, acid reflux - GENITOURINARY/GYNECOLOGICAL Hx Genitourinary Disorders: No - PSYCHIATRIC Hx Emotional Abuse: No Hx Physical Abuse: No Hx Substance Use: No - SURGICAL HISTORY Hx Surgeries: Yes Hx Hysterectomy: Yes (PARTIAL) Hx Musculoskeletal Surgery: Yes (BILATERAL bunionectomy 2016) Hx Orthopedic Surgery: Yes (left wrtst carpal tunnel) Hx Thyroidectomy: Yes (REJI THYROIDECTOMY 20 YRS) Other/Comment: cyst on stomach - ANESTHESIA Hx Anesthesia: Yes Hx Anesthesia Reactions: No Hx Malignant Hyperthermia: No Meds Allergies/Adverse Reactions: Allergies Allergy/AdvReac Type Severity Reaction Status Date / Time No Known Allergies Allergy Verified 11/22/17 14:41 - Medications Medications: Current Medications Enalaprilat (Vasotec Iv) 1.25 mg IV Q6 PRN PRN Reason: Systolic Blood Pressure Sodium Chloride (Sodium Chloride 0.45%) 500 mls @ 100 mls/hr IV .Q5H [facility] Stop: 07/31/18 07:31 Last Admin: 07/30/18 07:56 Dose: 100 mls/hr Dextrose/Sodium Chloride (Dextrose 5%/0.45% Ns 1000 Ml) 1,000 mls @ 80 mls/hr IV .[id number] [facility] Stop: 07/31/18 10:01 Metoprolol Tartrate (Lopressor) 2.5 mg IVP Q4 PRN PRN Reason: Systolic Blood Pressure Physical Exam - Respiratory Exam Respiratory Exam: Clear to Auscultation Bilateral - Cardiovascular Exam Cardiovascular Exam: REGULAR RHYTHM, +S1, +S2 - Extremities Exam Additional comments: NO LE EEMA LEFT ELBOW IN A SPLINT - Additional Findings Additional findings: EKG NSR Results - Vital Signs Recent Vital Signs: Last Vital Signs Temp 98.0 F 07/30/18 06:53 Pulse 61 07/30/18 09:15 Resp 19 07/30/18 09:15 BP 162/89 H 07/30/18 09:15 Pulse Ox 98 07/30/18 08:43 - Labs Result Diagrams: 07/30/18 07:50 07/30/18 07:50 Labs: Laboratory Results - last 24 hr 07/30/18 07/30/18 07/30/18 07:50 07:50 07:50 WBC 4.4 L RBC 4.25 Hgb 11.4 L D Hct 34.9 MCV 82.0 D MCH 26.7 L MCHC 32.6 L RDW 15.2 H Plt Count 196 D MPV 9.2 Neut % (Auto) 57.1 Lymph % (Auto) 26.9 Cherry % (Auto) 12.7 H Eos % (Auto) 2.6 Baso % (Auto) 0.7 Neut # (Auto) 2.5 Lymph # (Auto) 1.2 Cherry # (Auto) 0.6 Eos # (Auto) 0.1 Baso # (Auto) 0.0 PT 10.5 INR 0.9 APTT 30.8 Sodium 138 Potassium 4.8 Chloride 104 Carbon Dioxide 28 Anion Gap 11 BUN 19 H Creatinine 0.9 Est GFR ( Amer) > 60 Est GFR (Non-Af Amer) > 60 Random Glucose 102 Calcium 9.0 Total Bilirubin 0.5 AST 24 ALT 20 Alkaline Phosphatase 90 Total Protein 7.1 Albumin 4.1 Globulin 3.0 Albumin/Globulin Ratio 1.3 Blood Type Antibody Screen BBK History Checked 07/30/18 07:50 WBC RBC Hgb Hct MCV MCH MCHC RDW Plt Count MPV Neut % (Auto) Lymph % (Auto) Cherry % (Auto) Eos % (Auto) Baso % (Auto) Neut # (Auto) Lymph # (Auto) Cherry # (Auto) Eos # (Auto) Baso # (Auto) PT INR APTT Sodium Potassium Chloride Carbon Dioxide Anion Gap BUN Creatinine Est GFR ( Amer) Est GFR (Non-Af Amer) Random Glucose Calcium Total Bilirubin AST ALT Alkaline Phosphatase Total Protein Albumin Globulin Albumin/Globulin Ratio Blood Type O POSITIVE Antibody Screen Positive BBK History Checked Patient has bt Assessment & Plan - Assessment and Plan (Free Text) Assessment: FALL WITH LEFT ELBOW FRACTURE HYPOTHYROIDISM BLOOD PRESSURE IS GOOD AT THE PRESENT TIME-HIGHER BLOOD PRESSURE EARLIER TODAY WAS PROBABLY FROM THE PAIN Plan: THE PATIENT IS CLEARED FOR SURGERY
--- NOTE | 2018-07-30 11:00 | RAD ---
Date of service: 07/30/2018 HISTORY: preop COMPARISON: No prior. FINDINGS: LUNGS: No active pulmonary disease. PLEURA: No significant pleural effusion identified, no pneumothorax apparent. CARDIOVASCULAR: No aortic atherosclerotic calcification present. Normal cardiac size. No pulmonary vascular congestion. OSSEOUS STRUCTURES: No significant abnormalities. VISUALIZED UPPER ABDOMEN: Normal. OTHER FINDINGS: None. IMPRESSION: No acute cardiopulmonary disease appreciated.
[2018-07-30 11:03] VITALS: RESP 18
[2018-07-30] MEDS ORDERED: EnalaprilAT 1.25 mg/ml Inj ONE (11:12)
[2018-07-30] MEDS ORDERED: Bupivacaine HCl 0.25% PF (30 ml) Inj ONE (11:25)
[2018-07-30 11:26] LABS: SQUAMOUS EPITHIAL < 1 /hpf (0-5); URINE BILIRUBIN NEGATIVE (NEGATIVE); URINE BLOOD NEGATIVE (NEGATIVE); URINE CLARITY CLEAR (Clear); URINE COLOR COLORLESS (YELLOW); URINE GLUCOSE (UA) NEG (NEGATIVE); URINE LEUKOCYTE ESTERASE NEG Leu/uL (Negative); URINE PROTEIN NEGATIVE (NEGATIVE); URINE UROBILINOGEN 0.2-1.0 mg/dL (0.2-1.0)
[2018-07-30] MEDS ORDERED: Lidocaine 1% Inj (20ml) ONE (11:26)
[2018-07-30] MEDS ORDERED: Thrombin Topical 5,000 Int Units Spray Kit ONE (11:26)
[2018-07-30] MEDS ORDERED: Bacitracin Ointment 30 GM TUBE ONE (11:26)
[2018-07-30] MEDS ORDERED: Absorbable Gelatin Sponge Size 12-7 ONE (11:26)
[2018-07-30] MEDS ORDERED: Propofol 10 mg/ml Inj (20 ML) ONE (11:27)
[2018-07-30] MEDS ORDERED: Succinylcholine 200 mg/10 ml Inj IV ONE (11:28)
[2018-07-30] MEDS ORDERED: Etomidate 20 mg/10ml Inj IV ONE (11:28)
[2018-07-30] MEDS ORDERED: Rocuronium 10 mg/ml (5 ml) ONE (11:28)
[2018-07-30] MEDS ORDERED: Phenylephrine 10 mg/ml Inj ONE (11:28)
[2018-07-30] MEDS ORDERED: Bupivacaine 0.25%-Epinephrine 1:200,000 (30 ml) Inj ONE (11:44)
[2018-07-30] MEDS ORDERED: Ropivacaine 0.5% 30ML IV ONE (11:44)
[2018-07-30] MEDS ORDERED: Lactated Ringer's 1,000 ML IV ONE ×2 (11:49→15:45)
[2018-07-30] MEDS ORDERED: Midazolam 2 MG/2 ML VIAL ONE (11:52)
[2018-07-30] MEDS ORDERED: Sodium Chloride 0.9% 10 ML IV ONE (12:51)
[2018-07-30] MEDS ORDERED: ePHEDrine 50 mg/ml Inj ONE (12:51)
[2018-07-30] MEDS ORDERED: Neostigmine 1:1000 (1 mg/ml) Inj ONE (13:44)
[2018-07-30] MEDS ORDERED: Bacitracin OINT 15GM TOP ONE (14:10)
--- NOTE | 2018-07-30 14:21 | PCM.SURG1 ---
Surgeon's Initial Post Op Note - Surgeon's Notes Surgeon: Abdullahi Brass Plater: LAZARA Lujan Type of Anesthesia: General Endo Anesthesia Administered By: Dr shabazz Pre-Operative Diagnosis: Rupture ulnar collateral ligament L elbow. fracture radial head L elbow Operative Findings: asd above Post-Operative Diagnosis: as above Operation Performed: Primary repair/ ulnar collaterral ligament rupture/ reinforcemnt ulnar collaterral ligament rupture with internal brace. closed reduction raDIAL HEAD FRACTURE. exploration ulnar nerve/ ulnar neurolysis. applx posterior splint Specimen/Specimens Removed: epineurium/ intermuscular septum Estimated Blood Loss: EBL {In ML}: 10 Blood Products Given: N/A Drains Used: No Drains Post-Op Condition: Fair Date of Surgery/Procedure: 07/30/18 Time of Surgery/Procedure: 12:45 (time in room 11:49/ karla reddy time 11:49)
[2018-07-30] MEDS ORDERED: Oxycodone/Acetaminophen 5/325 mg Tab PO PRN (14:29)
[2018-07-30] MEDS ORDERED: HYDROmorphone 0.5 mg/0.5 ml ISec IVP PRN (14:32)
--- NOTE | 2018-07-30 14:36 | ED PDOC ---
Upper Extremity Pain/Injury Time Seen by Provider: 07/30/18 07:04 Chief Complaint (Nursing): Upper Extremity Problem/Injury Chief Complaint (Provider): left elbow pain History Per: Patient, Family History/Exam Limitations: no limitations Quality: Sharp Severity: Severe Exacerbating Factor(s): Strenuous Use Of Affected Area, Movement Additional Complaint(s): 77yo female c/o worsening pain to L elbow s/p mechanical fall several days ago. Denied head or neck pain or injury. Past Medical History Reviewed: Historical Data, Nursing Documentation, Vital Signs Vital Signs: Last Vital Signs Temp 98.0 F 07/30/18 11:09 Pulse 78 07/30/18 11:11 Resp 18 07/30/18 11:02 BP 168/94 H 07/30/18 11:11 Pulse Ox 98 07/30/18 11:02 - Medical History PMH: Arthritis, HTN, Hypothyroidism Denies: Chronic Kidney Disease - Family History Family History: States: Unknown Family Hx - Living Arrangements Living Arrangements: With Family - Social History Alcohol: None Drugs: Denies - Home Medications Home Medications: Ambulatory Orders Medication Instructions Recorded Levothyroxine Sodium [Levoxyl] 100 mcg PO DAILY 11/20/17 Omeprazole 40 mg PO DAILY 11/20/17 Cetirizine HCl [Zyrtec] 10 mg PO HS 07/30/18 - Allergies Allergies/Adverse Reactions: Allergies Allergy/AdvReac Type Severity Reaction Status Date / Time No Known Allergies Allergy Verified 11/22/17 14:41 Review of Systems Constitutional: Negative for: Fever Respiratory: Negative for: Cough, Shortness of Breath Gastrointestinal: Negative for: Abdominal Pain Genitourinary Female: Negative for: Dysuria Musculoskeletal: Positive for: Arm Pain. Negative for: Neck Pain, Shoulder Pain, Back Pain, Hand Pain, Leg Pain Skin: Negative for: Rash, Lesions, Jaundice Neurological: Negative for: Weakness, Numbness Psych: Negative for: Suicidal ideation Physical Exam - Reviewed Nursing Documentation Reviewed: Yes Vital Signs Reviewed: Yes - Physical Exam Appears: Positive for: Well, Non-toxic Head Exam: Positive for: ATRAUMATIC Skin: Positive for: Warm, Dry Eye Exam: Negative for: Periorbital swelling Neck: Positive for: Supple Cardiovascular/Chest: Positive for: Regular Rate, Rhythm Respiratory: Negative for: Respiratory Distress Extremity: Positive for: Tenderness (L elbow), Swelling (L elbow) - Laboratory Results Result Diagrams: 07/30/18 07:50 07/30/18 07:50 - ECG O2 Sat by Pulse Oximetry: 98 Medical Decision Making Medical Decision Making: d/w [facility] basic bloodwork, EKG and XRay reviewed Disposition - Clinical Impression Clinical Impression: Elbow fracture - Patient ED Disposition Is Patient to be Admitted: Yes Counseled Patient/Family Regarding: Studies Performed, Diagnosis, Need For Followup - Disposition Disposition Time: 07:45 Condition: FAIR - Pt Status Changed To: Hospital Disposition Of: Observation - POA Present On Arrival: Falls Or Trauma
--- NOTE | 2018-07-30 14:41 | PCM.ANESB4 ---
Infraclavicular Block - Femoral Nerve Block Date of Procedure: 07/30/18 Anesthesiologist: Caitlyn Pre-Procedure Diagnosis: Left elbow UCL rupture Post-Procedure Diagnosis: Same Procedure Performed: Brachial Plexus at the Infraclavicular area Left - Procedure Infraclavicular Block: The procedure was explained to the patient that it is for the post-operative pain management. Consent was obtained after a thorough discussion with the patient regarding the benefits and possible complications of local anesthetic block of the brachial plexus at the infraclavicular area. The patient was brought to the operating room and standard monitors were applied. Time-out was held with the circulating nurse to confirm the correct surgery and the appropriate block. After applying oxygen by nasal cannula and administering IV Sedation, patient's head was gently rotated away from the operative __left shoulder and the area medial to the coracoid process and inferior to the clavicle was carefully palpated. The ultrasound transducer was then applied to the skin in the transverse plane and the brachial plexus was visualized surrounding the axillary artery and deep to the pectoralis major and minor muscles. After thorough identification, this area was prepped with Chloraprep and 1 % Lidocaine was injected subcutaneously for topical anesthesia. At this point, a #21 gauge Stimuplex 4-inch needle was inserted cephalad to the ultrasound transducer and inferior to the clavicle in-plane towards the posterior aspect of the axillary artery. Needle advancement was performed carefully under ultrasound visualization. Nerve stimulator was used and twitch of the affected extremity including fingers, hand, wrist and elbow was obtained at current of _0.4____MA. After repeated negative aspiration, __2___cc of _0.375____% ___bupivacaine with 1:200,000 epinephrine was injected and this was followed with ___28___ cc of __0.375____ % __bupivacaine with 1:200,000 . Under ultrasound guidance the local anesthetics were observed surrounding the cords of the brachial plexus. The needle was removed intact. The patient had stable vital signs, was conscious and in no apparent distress. The patient tolerated the infraclavicular block of the brachial plexus well with stable vital signs was prepared for subsequent surgery.
[2018-07-30] MEDS ORDERED: Lactated Ringer's 1,000 ML IV SCH (14:45)
--- NOTE | 2018-07-30 14:48 | CP.PCM.PN ---
Subjective - Date & Time of Evaluation Date of Evaluation: 07/30/18 Time of Evaluation: 14:47 - Subjective Subjective: [place] [employer] CONSULTANT patient report reviewed, last rx 11/2017. Patient counseled on the risks of addiction, physical or psychological dependence, and overdose associated with opioid drugs and the danger of taking opioid drugs with alcohol and other ce ntral nervous system depressants, and cautioned patient on storage and disposal. Objective - Vital Signs/Intake and Output Vital Signs (last 24 hours): Temp Pulse Resp BP Pulse Ox 98.0 F 78 18 168/94 H 98 07/30/18 11:09 07/30/18 11:11 07/30/18 11:02 07/30/18 11:11 07/30/18 14:37 Intake and Output: 07/30/18 07/30/18 06:59 18:59 Intake Total 500 Balance 500 - Medications Medications: Current Medications Enalaprilat (Vasotec Iv) 1.25 mg IV Q6 PRN PRN Reason: Systolic Blood Pressure Last Admin: 07/30/18 11:11 Dose: 1.25 mg Hydromorphone HCl (Dilaudid) 0.5 mg IVP Q15M PRN PRN Reason: Pain, moderate (4-7) Stop: 07/30/18 16:36 Sodium Chloride (Sodium Chloride 0.45%) 500 mls @ 100 mls/hr IV .Q5H [facility] Stop: 07/31/18 07:31 Last Admin: 07/30/18 07:56 Dose: 100 mls/hr Dextrose/Sodium Chloride (Dextrose 5%/0.45% Ns 1000 Ml) 1,000 mls @ 80 mls/hr IV .[id number] [facility] Stop: 07/31/18 10:01 Last Admin: 07/30/18 11:07 Dose: 80 mls/hr Lactated Ringer's (Lactated Ringer's) 1,000 mls @ 100 mls/hr IV .Q10H [facility] Metoprolol Tartrate (Lopressor) 2.5 mg IVP Q4 PRN PRN Reason: Systolic Blood Pressure Ondansetron HCl (Zofran Inj) 4 mg IVP ONCE PRN PRN Reason: Nausea/Vomiting Stop: 07/30/18 16:37 Oxycodone/Acetaminophen (Percocet 5/325 Mg Tab) 1 tab PO Q4 PRN PRN Reason: Pain, moderate (4-7) Stop: 08/02/18 14:30 - Labs Labs: 07/30/18 07:50 07/30/18 07:50 PT 10.5 Seconds (9.8-13.1) 07/30/18 07:50 INR 0.9 07/30/18 07:50 APTT 30.8 Seconds (25.6-37.1) 07/30/18 07:50
[2018-07-30] MEDS ORDERED: Sodium Chloride 0.9% 1,000 ML IV ONE (15:45)
--- NOTE | 2018-07-30 15:45 | RAD ---
Date of service: 07/30/2018 PROCEDURE: Left elbow HISTORY: pt in pacu s/p ORIF COMPARISON: July 30, 2018 preoperative study performed 08:06. TECHNIQUE: Portable study 15:10. FINDINGS: Two images submitted. Postoperative changes identified in the cutaneous and subcutaneous tissues. IMPRESSION: Satisfactory postoperative study,
--- NOTE | 2018-07-30 15:51 | RAD ---
Date of service: 07/30/2018 PROCEDURE: Intraoperative Fluoroscopy. HISTORY: LEFT ELBOW FINDINGS: Fluoroscopic assistance was provided for left elbow surgery. Please refer to the operative report from MITA Lemons. Total fluoroscopic time (continuous mode) utilized during the procedure 23.1 seconds.
[2018-07-30 16:24] VITALS: O2SAT 95
[2018-07-30 17:38] VITALS: BP 121/70; PULSE 66; TEMP 97.4
--- NOTE | 2018-07-31 00:25 | CARD ---
APPROVED REPORT Date of service: 07/30/2018 EKG Measurement Heart [id number] <Conclusion> Normal sinus rhythm Normal ECG
--- NOTE | 2018-07-31 06:43 | CP.PCM.DIS ---
Provider - Provider Date of Admission: 07/30/18 08:02 Attending physician: John Mejia MD Consults: 07/30/18 07:35 Cardiology Consult Stat Comment: Consulting Provider: Shmuel Fox Consulting Physician: Shmuel Fox Reason for Consult: preop Time Spent in preparation of Discharge (in minutes): 30 Diagnosis - Discharge Diagnosis (1) Elbow fracture Status: Acute (2) Left radial head fracture Status: Acute Hospital Course - Lab Results Lab Results: Most Recent Lab Values WBC 4.4 K/uL (4.8-10.8) L 07/30/18 07:50 RBC 4.25 Mil/uL (3.80-5.20) 07/30/18 07:50 Hgb 11.4 g/dL (12.0-16.0) L D 07/30/18 07:50 Hct 34.9 % (34.0-47.0) 07/30/18 07:50 MCV 82.0 fl (81.0-99.0) D 07/30/18 07:50 MCH 26.7 pg (27.0-31.0) L 07/30/18 07:50 MCHC 32.6 g/dL (33.0-37.0) L 07/30/18 07:50 RDW 15.2 % (11.5-14.5) H 07/30/18 07:50 Plt Count 196 K/uL (130-400) D 07/30/18 07:50 MPV 9.2 fl (7.2-11.7) 07/30/18 07:50 Neut % (Auto) 57.1 % (50.0-75.0) 07/30/18 07:50 Lymph % (Auto) 26.9 % (20.0-40.0) 07/30/18 07:50 Pershing % (Auto) 12.7 % (0.0-10.0) H 07/30/18 07:50 Eos % (Auto) 2.6 % (0.0-4.0) 07/30/18 07:50 Baso % (Auto) 0.7 % (0.0-2.0) 07/30/18 07:50 Neut # (Auto) 2.5 K/uL (1.8-7.0) 07/30/18 07:50 Lymph # (Auto) 1.2 K/uL (1.0-4.3) 07/30/18 07:50 Pershing # (Auto) 0.6 K/uL (0.0-0.8) 07/30/18 07:50 Eos # (Auto) 0.1 K/uL (0.0-0.7) 07/30/18 07:50 Baso # (Auto) 0.0 K/uL (0.0-0.2) 07/30/18 07:50 PT 10.5 Seconds (9.8-13.1) 07/30/18 07:50 INR 0.9 07/30/18 07:50 APTT 30.8 Seconds (25.6-37.1) 07/30/18 07:50 Sodium 138 mmol/l (132-148) 07/30/18 07:50 Potassium 4.8 MMOL/L (3.6-5.0) 07/30/18 07:50 Chloride 104 mmol/L (98-107) 07/30/18 07:50 Carbon Dioxide 28 mmol/L (22-30) 07/30/18 07:50 Anion Gap 11 (10-20) 07/30/18 07:50 BUN 19 mg/dl (7-17) H 07/30/18 07:50 Creatinine 0.9 mg/dl (0.7-1.2) 07/30/18 07:50 Est GFR ( Amer) > 60 07/30/18 07:50 Est GFR (Non-Af Amer) > 60 07/30/18 07:50 POC Glucose (mg/dL) 90 mg/dL (65-110) 07/30/18 10:48 Random Glucose 102 mg/dL (65-105) 07/30/18 07:50 Calcium 9.0 mg/dL (8.4-10.2) 07/30/18 07:50 Total Bilirubin 0.5 mg/dl (0.2-1.3) 07/30/18 07:50 AST 24 U/L (14-36) 07/30/18 07:50 ALT 20 U/L (9-52) 07/30/18 07:50 Alkaline Phosphatase 90 U/L (38-126) 07/30/18 07:50 Total Protein 7.1 G/DL (6.3-8.2) 07/30/18 07:50 Albumin 4.1 g/dL (3.5-5.0) 07/30/18 07:50 Globulin 3.0 gm/dL (2.2-3.9) 07/30/18 07:50 Albumin/Globulin Ratio 1.3 (1.0-2.1) 07/30/18 07:50 Urine Color Colorless (YELLOW) 07/30/18 11:07 Urine Clarity Clear (Clear) 07/30/18 11:07 Urine pH 8.0 (5.0-8.0) 07/30/18 11:07 Ur Specific [place] 1.008 (1.003-1.030) 07/30/18 11:07 Urine Protein Negative mg/dL (NEGATIVE) 07/30/18 11:07 Urine Glucose (UA) Neg mg/dL (NEGATIVE) 07/30/18 11:07 Urine Ketones Negative mg/dL (NEGATIVE) 07/30/18 11:07 Urine Blood Negative (NEGATIVE) 07/30/18 11:07 Urine Nitrate Negative (NEGATIVE) 07/30/18 11:07 Urine Bilirubin Negative (NEGATIVE) 07/30/18 11:07 Urine Urobilinogen 0.2-1.0 mg/dL (0.2-1.0) 07/30/18 11:07 Ur Leukocyte Esterase Neg Janice/uL (Negative) 07/30/18 11:07 Urine RBC (Auto) < 1 /hpf (0-3) 07/30/18 11:07 Ur Squamous Epith Cells < 1 /hpf (0-5) 07/30/18 11:07 Blood Type O POSITIVE 07/30/18 07:50 Antibody Screen Positive 07/30/18 07:50 Antibody Identification Anti E Anti Fya 07/30/18 07:50 Antibody Identification Anti E Anti Fya 07/30/18 07:50 Antigen Identification C Antigen - POSITIVE E Antigen - NEGATIVE Fya Antigen - NEGATIVE c Antigen - POSITIVE e Antigen - POSITIVE 07/30/18 07:50 Antigen Identification C Antigen - POSITIVE E Antigen - NEGATIVE Fya Antigen - NEGATIVE c Antigen - POSITIVE e Antigen - POSITIVE 07/30/18 07:50 Antigen Identification C Antigen - POSITIVE E Antigen - NEGATIVE Fya Antigen - NEGATIVE c Antigen - POSITIVE e Antigen - POSITIVE 07/30/18 07:50 Antigen Identification C Antigen - POSITIVE E Antigen - NEGATIVE Fya Antigen - NEGATIVE c Antigen - POSITIVE e Antigen - POSITIVE 07/30/18 07:50 Antigen Identification C Antigen - POSITIVE E Antigen - NEGATIVE Fya Antigen - NEGATIVE c Antigen - POSITIVE e Antigen - POSITIVE 07/30/18 07:50 BBK History Checked Patient has bt 07/30/18 07:50 - Hospital Course Hospital Course: 77 yo female with pmhx of hypothyroidism and gastric reflux seen and evaluated in the ED with left elbow fracture While in house she was seen by Dr. Fox and cleared for surgery from cardiac standpoint. She was medically optimized for surgery by medicine team. Dr. Fernando was consulted and performed ORIF of left elbow. As patient present with mildly elevated BP, ordered IV lopressor 5 mg Q4 hrs prn SBP >160, hold HR <60 and IV enalapril 2.5 mg Q6 PRN SBP >160. Postoperative x-ray of left elbow showed satisfactory postop results. After surgery she denied complaints of N/V/F/C/SOB/CP and was given tylenol with codei ne for pain management. Patient will f/u with Dr. Fernando as outpatient and return to the ED if any acute events present. Stable for discharge, pain controlled, patient voided freely and ate postoperatively. - Date & Time of H&P Date of H&P: 07/31/18 Time of H&P: 06:41 Discharge Exam - Head Exam Head Exam: ATRAUMATIC, NORMOCEPHALIC - Eye Exam Eye Exam: EOMI, Normal appearance - ENT Exam ENT Exam: Normal Exam - Neck Exam Neck exam: Full Rom, Normal Inspection - Respiratory Exam Respiratory Exam: Clear to PA & Lateral, NORMAL BREATHING PATTERN - Cardiovascular Exam Cardiovascular Exam: REGULAR RHYTHM, +S1, +S2 - GI/Abdominal Exam GI & Abdominal Exam: Normal Bowel Sounds, Soft - Extremities Exam Extremities exam: normal capillary refill, pedal pulses present Additional comments: dressing intact s/p left elbow ORIF NV status intact - Back Exam Back exam: NORMAL INSPECTION - Neurological Exam Neurological exam: Alert, Oriented x3 - Psychiatric Exam Psychiatric exam: Normal Affect, Normal Mood - Skin Skin Exam: Dry, Normal Color, Warm Discharge Plan - Discharge Medications Prescriptions: Acetaminophen with Codeine [Tylenol with Codeine #3 Tablet] 1 each PO Q4H PRN #30 tablet PRN Reason: Pain, Moderate (4-7) - Follow Up Plan Condition: FAIR Disposition: HOME/ ROUTINE Clinical Quality Measures - Date & Time of Discharge Summary Date of Discharge Summary: 07/31/18 Time of Discharge Summary: 06:44
--- NOTE | 2018-08-01 16:10 | OP ---
PROCEDURE DATE: 07/30/2018 PREOPERATIVE DIAGNOSES: 1. Ruptured ulnar collateral ligament, left elbow. 2. Fracture of radial head, left elbow. POSTOPERATIVE DIAGNOSES: 1. Complete rupture of ulnar collateral ligament, left elbow. 2. Fracture of the radial head with comminution, but no displacement. OPERATIVE FINDINGS: As above. OPERATION PERFORMED: 1. Primary repair/reconstruction of ulnar collateral ligament rupture. 2. Exploration of the ulnar nerve, ulnar nerve decompression and neurolysis at the elbow. 3. Closed reduction of the radial head and application of posterior splint. SURGEON: Vishnu Fernando MD RECEPTION CLERK: Kerry Klein, certified registered nursing health care assistant. ANESTHESIA: General endotracheal anesthesia. ANESTHESIOLOGIST: Chilango Brady MD COMPLICATIONS: No complications. DRAINS: No drains. SPECIMENS REMOVED: Epineurium and the intermuscular septum. BLOOD LOSS: 10 mL. No blood products given. POSTOPERATIVE CONDITION: Stable. TIME OF SURGERY: 12:45. INCISION TIME IN THE ROOM: 11:40. OPERATIVE INDICATION: Flora Almonte is a 77-year-old woman well-known to my practice who sustained a severe fall on the elbow. The patient in that fall sustained a rupture of the ulnar collateral ligament. The patient was taken to surgery as an emergency. The patient had presented to the emergency room at [facility]. Pros, cons, risks, and benefits of surgical approach was discussed at length with the patient and her daughter. The possibility of mechanical failure, infection, thromboembolic disease, secondary or tertiary surgery was discussed. The patient can no longer withstand the discomfort. OPERATIVE PROCEDURE: After having obtained informed consent, after having identified the side, site, and procedure and a critical pause/time-out, after the satisfactory induction of the anesthetic, the patient was identified as Flora Almonte in the supine position with all bony prominences well padded. The left upper extremity was prepped and free draped in the usual fashion for upper extremity surgery. The tourniquet had been applied but was not yet inflated. After exsanguinating the limb using a 4-inch Esmarch bandage, the tourniquet which had been applied was inflated to 250 mmHg. The operation was performed under loupe magnification two times. After exsanguinating the limb using a 6-inch Esmarch bandage under the surgeon's direction, the fluoroscope was positioned, video images were generated, therapeutic decisions were made therefrom. An incision was described on the medial epicondyle, extending three fingerbreadths proximally and three fingerbreadths distally. The skin incision was carried down through the skin and subcutaneous tissue. Dissection was carried out to the brachial fascia with the dissecting scissors. Stay sutures were placed. At this point in time, the ulnar nerve was identified at the area of the medial epicondyle and using again a #15 blade, a small michelle was placed in the fascia. The underlying nerve was protected and using the Metzenbaum scissors, the ulnar nerve was identified and was carefully traced back to its origin at the proximal brachium medially. The intermuscular septum was identified. The ulnar nerve was decompressed and the intermuscular septum was excised. The ulnar nerve was traced down past the medial epicondyle and the elbow into the forearm. A partial ulnar neurolysis was accomplished using the dissecting scissors. Ulnar neurolysis having been accomplished, the ulnar nerve was grasped carefully using a moist Krish drain to keep it out of harm's way. At this point in time, the area from the medial aspect of the medial epicondyle onto the proximal medial aspect of the ulna was identified. The muscular layer was entered superficial and anteriorly to the ulnar collateral ligament. Great care was taken to avoid injury to any neurocirculatory structures. The small AO Hohmann retractor was placed, there was found to be a complete rupture of the ulnar collateral ligament from its ulnar insertion. This having been accomplished and with the arm in approximately 60 degrees, drilling was accomplished at the sublime tubercle and the PEEK SwiveLock anchor was loaded with the FiberTape. The FiberTape having been loaded into the SwiveLock anchor, the SwiveLock anchor was impacted in the area of the sublime tubercle. The position was found to be excellent. With the elbow at 60 degrees, there was found to be the aforementioned rupture of the ulnar collateral ligament. This was repaired using interrupted 0 FiberWire and at the point of the medial epicondyle, the proximal area was identified and a small slit was made with a #15 blade. Drilling was accomplished in the same fashion. The FiberTape was loaded as the internal brace. This was loaded into the SwiveLock anchor and it was impacted and introduced into the medial epicondyle. The position was found to be excellent at 60 degrees. Further interrupted FiberWire sutures were used to complete the repair of the ulnar collateral ligament. Exploration of the ulnar nerve and ulnar neurolysis having been accomplished, the soft tissue in the area of the medial epicondyle and the area of the ulnar collateral ligament was again repaired to the medial epicondyle periosteum as well. This completes the repair/reconstruction of the ulnar collateral ligament with the brace. Ulnar neurolysis and ulnar exploration having been accomplished, the wound was thoroughly irrigated, closures in layers with interrupted Vicryl and tenzin. At this point in time, under the surgeon's direction, the fluoroscope was positioned, video images were generated, therapeutic decisions were made therefrom. Correlation with the preoperative MRI examination was accomplished. The radial head was reduced, a posterior splint was applied. Closed reduction of the radial head was found to be satisfactory. Flexion/extension was found to be satisfactory as well as pronation and supination. A well-padded Francis Kat compression dressing and posterior splint was applied. Vishnu Fernando MD
== END 2018-07-30 18:45 | disposition home or self-care (01) ==
LOC: H.ER 06:44 → H.ERHOLD 08:02
PROVIDERS: ADMIT Internal Medicine; ATTEND Internal Medicine
DX: S52.122A Displaced fracture of head of left radius, initial encounter for closed fracture (principal); S52.092A Other fracture of upper end of left ulna, initial encounter for closed fracture; S53.32XA Traumatic rupture of left ulnar collateral ligament, initial encounter; E03.9 Hypothyroidism, unspecified; I10 Essential (primary) hypertension; K21.9 Gastro-esophageal reflux disease without esophagitis; W01.0XXA Fall on same level from slipping, tripping and stumbling without subsequent striking against object, initial encounter; Z96.641 Presence of right artificial hip joint; Y92.009 Unspecified place in unspecified non-institutional (private) residence as the place of occurrence of the external cause
CPT/HCPCS: 24343; 24655; 64450; 64718; 71045; 73080; 80053; 81003; 82948; 85025; 85610; 85730; 86850; 86860; 86870; 86900; 88304; 93005; 99285; G0378; J0330; J0690; J2001; J2250; J2370; J2405; J2704; J2710; J2765; J3010; J7030; J7042; J7120